=== PATIENT | male | born 1925 | race Caucasian/White ===

== ENCOUNTER 2017-07-12 20:15 | Inpatient (IN) | payer MEDICARE ==
[~2017-07-12] VITALS: Ht 188 cm; Wt 102.5 kg
[2017-07-12 20:31] LABS: BASO # 0.1 x10^3/uL (0.0-0.2); BASO % 1 % (0-3); EOS % 1 % (0-3); HEMATOCRIT 48.2 % (39.0-53.0); HEMOGLOBIN 16.4 g/dL (13.0-17.5); LYMPH # 1.2 x10^3/uL (1.0-4.8); LYMPH % 17 % (24-48); MEAN CORPUSCULAR HEMOGLOBIN 34 pg (25-35); MEAN CORPUSCULAR HGB CONC 34 g/dL (31-37); MEAN CORPUSCULAR VOLUME 101 fL (79-100); MONO % 8 % (0-9); NEUT % 73 % (31-73); PLATELET COUNT 243 x10^3/uL (140-400); RED BLOOD COUNT 4.78 x10^6/uL (4.30-5.70); RED CELL DISTRIBUTION WIDTH 13.6 % (11.5-14.5); WHITE BLOOD COUNT 6.8 x10^3/uL (4.0-11.0)
--- NOTE | 2017-07-12 20:35 | PHYS DOC ---
Adult General Chief Complaint Chief Complaint: WEAKNESS/GENERALIZED HPI HPI Patient is a 89 year old male presenting to the emergency department via EMS for evaluation of left arm weakness and pain that started approximately 1700. Family reported to EMS that he has been more weak and had more difficulty getting around over the past several days. G was done in route which showed J- point elevation with nonspecific intraventricular block and was called as a code STEMI however upon review of the transmitted EKGs it appears to be more of a J-point elevation and not a STEMI. On arrival patient is asking what all the fuss is about and says that he is not having any pain at this time and he is not diaphoretic or short of breath. Patient has tremors which is baseline per family. Patient does not see physicians and they say that he is quite stubborn. He is in no obvious distress with normal vital signs. Review of Systems Review of Systems Constitutional: Denies fever or chills [] Eyes: Denies change in visual acuity, redness, or eye pain [] HENT: Denies nasal congestion or sore throat [] Respiratory: Denies cough or shortness of breath [] Cardiovascular: No additional information not addressed in HPI [] GI: Denies abdominal pain, nausea, vomiting, bloody stools or diarrhea [] : Denies dysuria or hematuria [] Musculoskeletal: Denies back pain or joint pain [] Integument: Denies rash or skin lesions [] Neurologic: Denies headache. + focal weakness. No sensory changes [] Current Medications Current Medications Current Medications Medications (Trade) Dose Ordered Sig/Andrei Start Time Stop Time Status Last Admin Dose Admin Fentanyl Citrate (Fentanyl 2ml Vial) 50 mcg PRN Q2HR PRN 07/12/17 21:45 07/13/17 21:44 Ondansetron HCl (Zofran) 4 mg PRN Q8HRS PRN 07/12/17 21:45 07/13/17 21:44 Allergies Allergies Allergies Coded Allergies Type Severity Reaction Last Updated Verified No Known Drug Allergies 07/12/17 No Physical Exam Physical Exam Constitutional: Well developed, well nourished, no acute distress, non-toxic appearance. [] HENT: Normocephalic, atraumatic, bilateral external ears normal, oropharynx moist, no oral exudates, nose normal. [] Eyes: PERRLA, EOMI, conjunctiva normal, no discharge. [] Neck: Normal range of motion, no tenderness, supple, no stridor. [] Cardiovascular:Heart rate regular rhythm, no murmur [] Lungs & Thorax: Bilateral breath sounds clear to auscultation [] Abdomen: Bowel sounds normal, soft, no tenderness, no masses, no pulsatile masses. [] Skin: Warm, dry, no erythema, no rash. [] Back: No tenderness, no CVA tenderness. [] Extremities: No tenderness, no cyanosis, no clubbing, ROM intact, no edema. [] Neurologic: Alert and oriented X 3, normal motor function, normal sensory function, no focal deficits noted. baseline tremors noted. Current Patient Data Vital Signs Vital Signs Date Time Temp Pulse Resp B/P (MAP) Pulse Ox O2 Delivery O2 Flow Rate FiO2 07/12/17 22:07 76 20 148/72 (97) 95 07/12/17 20:19 98.3 Room Air 98.3 Lab Values Laboratory Tests Test 07/12/17 20:20 07/12/17 20:23 07/12/17 20:28 07/12/17 20:49 White Blood Count 6.8 x10^3/uL (4.0-11.0) Red Blood Count 4.78 x10^6/uL (4.30-5.70) Hemoglobin 16.4 g/dL (13.0-17.5) Hematocrit 48.2 % (39.0-53.0) Mean Corpuscular Volume 101 fL (79-100) H Mean Corpuscular Hemoglobin 34 pg (25-35) Mean Corpuscular Hemoglobin Concent 34 g/dL (31-37) Red Cell Distribution Width 13.6 % (11.5-14.5) Platelet Count 243 x10^3/uL (140-400) Neutrophils (%) (Auto) 73 % (31-73) Lymphocytes (%) (Auto) 17 % (24-48) L Monocytes (%) (Auto) 8 % (0-9) Eosinophils (%) (Auto) 1 % (0-3) Basophils (%) (Auto) 1 % (0-3) Neutrophils # (Auto) 5.0 x10^3uL (1.8-7.7) Lymphocytes # (Auto) 1.2 x10^3/uL (1.0-4.8) Monocytes # (Auto) 0.6 x10^3/uL (0.0-1.1) Eosinophils # (Auto) 0.1 x10^3/uL (0.0-0.7) Basophils # (Auto) 0.1 x10^3/uL (0.0-0.2) Prothrombin Time 13.6 SEC (11.7-14.0) Prothrombin Time INR 1.1 (0.8-1.1) PTT 30 SEC (24-38) POC Troponin I 0.06 ng/ml (<0.08) POC Hemoglobin 16.7 g/dL (14-18) POC Hematocrit 49 % (37-52) POC Sodium 140 mmol/L (135-145) POC Potassium 4.6 mmol/L (3.5-5.0) POC Chloride 98 mmol/L (98-110) POC Total CO2 29 mmol/L (23-32) Anion Gap 18 mmol/L (6-14) H 6 (6-14) POC Blood Urea Nitrogen 17 mg/dL (8-26) POC Creatinine 0.8 mg/dL (0.5-1.4) Glucose Level 151 mg/dL (70-99) H 160 mg/dL (70-99) H POC Ionized Calcium (Migdalia) 0.48 mmol/L (1.13-1.32) L Sodium Level 138 mmol/L (136-145) Potassium Level 4.4 mmol/L (3.5-5.1) Chloride Level 102 mmol/L (98-107) Carbon Dioxide Level 30 mmol/L (21-32) Blood Urea Nitrogen 14 mg/dL (8-26) Creatinine 1.0 mg/dL (0.7-1.3) Estimated GFR (Cockcroft-Gault) 70.4 BUN/Creatinine Ratio 14 (6-20) Calcium Level 9.1 mg/dL (8.5-10.1) Magnesium Level 2.1 mg/dL (1.8-2.4) Total Bilirubin 1.0 mg/dL (0.2-1.0) Aspartate Amino Transferase (AST) 20 U/L (15-37) Alanine Aminotransferase (ALT) 18 U/L (16-63) Alkaline Phosphatase 67 U/L (46-116) Troponin I Quantitative 0.051 ng/mL (0.000-0.055) XD-Xis-G-Type Natriuretic Peptide 2556 pg/mL (0-449) H Total Protein 7.6 g/dL (6.4-8.2) Albumin 3.7 g/dL (3.4-5.0) Albumin/Globulin Ratio 0.9 (1.0-1.7) L Lipase 144 U/L (73-393) Thyroid Stimulating Hormone (TSH) 1.941 uIU/mL (0.358-3.74) Test 07/12/17 21:51 Urine Collection Type Unknown Urine Color Yellow Urine Clarity Clear Urine pH 7.0 Urine Specific [place] 1.025 Urine Protein Negative mg/dL (NEG-TRACE) Urine Glucose (UA) Negative mg/dL (NEG) Urine Ketones (Stick) Trace mg/dL (NEG) Urine Blood Negative (NEG) Urine Nitrite Negative (NEG) Urine Bilirubin Negative (NEG) Urine Urobilinogen Dipstick 1.0 mg/dL (0.2 mg/dL) Urine Leukocyte Esterase Negative (NEG) Urine RBC Occ /HPF (0-2) Urine WBC 1-4 /HPF (0-4) Urine Squamous Epithelial Cells Few /LPF Urine Bacteria 0 /HPF (0-FEW) Urine Mucus Slight /LPF Laboratory Tests 07/12/17 20:20 Laboratory Tests 07/12/17 20:28 07/12/17 20:49 EKG EKG Sinus rhythm at 76 beats per minutes with leftward axis nonspecific intraventricular block, J-point elevation with no ST depression in reciprocal leads noted. Radiology/Procedures Radiology/Procedures Exam performed: CT scan of the head and cervical spine without contrast. Date of Service: 07/12/2017 Comparison: None available Clinical History: Left arm weakness and tremors with altered mental status Technique: Helical acquisitions are obtained from the foramen magnum to the vertex without intravenous administration of contrast. In addition helical acquisitions are obtained through the cervical spine. Sagittal and coronal reformatted images are obtained and reviewed. CT scan head findings: Prominence of cortical sulci and ventricular system is noted consistent with age-related atrophy. There are areas of low-attenuation in both periventricular and subcortical deep white matter suggesting small vessel ischemic changes. Normal cortés-white differentiation is maintained. There is no extra axial fluid collection, intraparenchymal hemorrhage or mass lesion. The visualized orbits, paranasal sinuses and the mastoid air cells are clear. The calvarium is intact. Impression: 1. No acute intracranial process detected. 2. Age-related atrophy and bilateral periventricular small vessel ischemic changes. End Impression. CT cervical spine findings: Normal sagittal alignment is preserved. The vertebral body heights are maintained. There is narrowing of C3/4 C5/6 and C6/7 intravertebral disc spaces with osteophytic spurring centered mainly around C5/6 level. Multilevel bilateral apophyseal joint hypertrophic changes are seen. There is no ferdinand or retrolisthesis. No prevertebral soft tissue swelling is identified. There are no fractures. No definite lymphadenopathy or masses are seen within the neck. The visualized thyroid and salivary glands appears preserved. Impression: 1. No acute abnormality seen in the CT scan cervical spine. 2. Spondylotic changes and multilevel disc degenerative changes are noted. PQRS Compliance Statement: One or more of the following individualized dose reduction techniques were utilized for this examination: 1. Automated exposure control 2. Adjustment of the mA and/or kV according to patient size 3. Use of iterative reconstruction technique Electronically signed by: Ann Medina MD (07/12/2017 8:50 PM) [facility] DICTATED and SIGNED BY: ANN MEDINA MD DATE: 07/12/172043 Impressions: Chest x-ray shows normal mediastinum borderline cardiomegaly no obvious free air pneumothorax that appears to have some interstitial edema Course & Med Decision Making Course & Med Decision Making Patient has an age stroke scale of 1 with mild arm drift on left side however his strength overall is intact. He is more than 3 hours out from onset of symptoms and is elderly and is not a good TPA candidate in my opinion. Dr. ulnd received EKG tracings and agreed with the assessment of not activating the catheter lab at this point. Patient appears to have chest x-ray and BNP consistent with congestive heart failure. He appears somewhat short of breath but nontoxic. Pulse ox is in the mid 90s. Given his age core morbidities and workup he will be admitted for further observation and treatment. Dragon Disclaimer Dragon Disclaimer This electronic medical record was generated, in whole or in part, using a voice recognition dictation system. Departure Departure Impression: Primary Impression: Left arm weakness Additional Impression: Elevated brain natriuretic peptide (BNP) level Disposition: ADMITTED INPATIENT Admitting Physician: Casi Banda Condition: STABLE Problem Qualifiers DHARMESH GARDNER DO Jul 12, 2017 20:35
[2017-07-12] MEDS ORDERED: ASPI-482 PO (20:37)
[2017-07-12 20:41] LABS: INR 1.1 (0.8-1.1); PROTHROMBIN TIME PATIENT 13.6 SEC (11.7-14.0)
--- NOTE | 2017-07-12 20:54 | RAD ---
Exam performed: CT scan of the head and cervical spine without contrast. Date of Service: 07/12/2017 Comparison: None available Clinical History: Left arm weakness and tremors with altered mental status Technique: Helical acquisitions are obtained from the foramen magnum to the vertex without intravenous administration of contrast. In addition helical acquisitions are obtained through the cervical spine. Sagittal and coronal reformatted images are obtained and reviewed. CT scan head findings: Prominence of cortical sulci and ventricular system is noted consistent with age-related atrophy. There are areas of low-attenuation in both periventricular and subcortical deep white matter suggesting small vessel ischemic changes. Normal cortés-white differentiation is maintained. There is no extra axial fluid collection, intraparenchymal hemorrhage or mass lesion. The visualized orbits, paranasal sinuses and the mastoid air cells are clear. The calvarium is intact. Impression: 1. No acute intracranial process detected. 2. Age-related atrophy and bilateral periventricular small vessel ischemic changes. End Impression. CT cervical spine findings: Normal sagittal alignment is preserved. The vertebral body heights are maintained. There is narrowing of C3/4 C5/6 and C6/7 intravertebral disc spaces with osteophytic spurring centered mainly around C5/6 level. Multilevel bilateral apophyseal joint hypertrophic changes are seen. There is no ferdinand or retrolisthesis. No prevertebral soft tissue swelling is identified. There are no fractures. No definite lymphadenopathy or masses are seen within the neck. The visualized thyroid and salivary glands appears preserved. Impression: 1. No acute abnormality seen in the CT scan cervical spine. 2. Spondylotic changes and multilevel disc degenerative changes are noted. PQRS Compliance Statement: One or more of the following individualized dose reduction techniques were utilized for this examination: 1. Automated exposure control 2. Adjustment of the mA and/or kV according to patient size 3. Use of iterative reconstruction technique Electronically signed by: Ann Mednia MD (07/12/2017 8:50 PM) [facility]
[2017-07-12 20:55] LABS: POTASSIUM ISTAT 4.6 mmol/L (3.5-5.0)
[2017-07-12 21:07] LABS: CALCIUM 9.1 mg/dL (8.5-10.1); GFR 70.4; POTASSIUM 4.4 mmol/L (3.5-5.1)
[2017-07-12 21:13] LABS: ALBUMIN 3.7 g/dL (3.4-5.0); ALBUMIN/GLOBULIN RATIO 0.9 (1.0-1.7); MAGNESIUM 2.1 mg/dL (1.8-2.4); TOTAL PROTEIN 7.6 g/dL (6.4-8.2)
[2017-07-12] MEDS ORDERED: ONDANSETRON PF 4 MG/2 ML VIAL. IV PRN (21:45)
[2017-07-12] MEDS ORDERED: fentaNYL PF VIAL 100 MCG/2 ML VIAL IV PRN (21:45)
[2017-07-12 22:00] LABS: BILIRUBIN,URINE NEGATIVE (NEG); GLUCOSE,URINE NEGATIVE (NEG); NITRITE,URINE NEGATIVE (NEG); PROTEIN,URINE NEGATIVE (NEG-TRACE)
[2017-07-12 22:08] LABS: BACTERIA,URINE 0 /HPF (0-FEW); RBC,URINE OCC /HPF (0-2); SQUAMOUS EPITHELIAL CELL,UR FEW /LPF
[2017-07-12 23:40] VITALS: BP 121/62
[2017-07-13] MEDS ORDERED: MULT1TAB52 PO (01:14)
[2017-07-13 03:25] VITALS: BP 116/72
[2017-07-13 04:36] LABS: BASO % 0 % (0-3); EOS % 1 % (0-3); HEMATOCRIT 47.1 % (39.0-53.0); HEMOGLOBIN 16.2 g/dL (13.0-17.5); LYMPH # 1.2 x10^3/uL (1.0-4.8); LYMPH % 13 % (24-48); MEAN CORPUSCULAR HEMOGLOBIN 34 pg (25-35); MEAN CORPUSCULAR HGB CONC 34 g/dL (31-37); MEAN CORPUSCULAR VOLUME 100 fL (79-100); MONO % 8 % (0-9); NEUT % 77 % (31-73); PLATELET COUNT 164 x10^3/uL (140-400); RED BLOOD COUNT 4.71 x10^6/uL (4.30-5.70); RED CELL DISTRIBUTION WIDTH 13.5 % (11.5-14.5); WHITE BLOOD COUNT 9.1 x10^3/uL (4.0-11.0)
[2017-07-13 04:57] LABS: CALCIUM 8.8 mg/dL (8.5-10.1); CREATININE 0.9 mg/dL (0.7-1.3); GFR 79.5; POTASSIUM 4.2 mmol/L (3.5-5.1)
--- NOTE | 2017-07-13 06:23 | EKG ---
[facility] [address] [place] [address] Test Date: 2017-07-12 Test Time: 20:14:06 Pat Name: GARY LU Department: Room: [facility] Gender: M Technical Documentation Specialist: : [id number] Requested By: DHARMESH GARDNER Order Number: [id number] Reading MD: Darryl Hastings Measurements Intervals [place] Rate: 76 P: -90 AK: 318 QRS: -5 QRSD: 146 T: 154 QT: 410 QTc: 461 Interpretive Statements SINUS RHYTHM PROLONGED AK INTERVAL LEFTWARD AXIS NON SPECIFIC INTRAVENTRICULAR BLOCK QRS(T) CONTOUR ABNORMALITY CONSISTENT WITH ANTEROSEPTAL INFARCT POSSIBLY RECENT Electronically Signed On 08-03-2017 16:15:14 CDT by Darryl Hastings
[2017-07-13 07:00] VITALS: BP 127/68
--- NOTE | 2017-07-13 08:19 | RAD ---
Chest x-ray Indication: Chest pain. Technique: Portable AP chest x-ray Comparison: None Findings: Patient is slightly rotated to the left. Heart is normal in size. Bibasilar reticulonodular opacities are noted. No focal consolidation. No pneumothorax or pleural effusion. Bilateral AC joint osteoarthritis. Visualized bony thorax within normal limits. Impression: Bibasilar reticular opacities may represent basilar scarring. No acute cardiopulmonary process.
--- NOTE | 2017-07-13 09:44 | PDOC2 ---
CARDIAC CONSULT DATE OF CONSULT Date of Consult DATE: 07/13/17 TIME: 09:39 REASON FOR CONSULT Reason for Consult: Elevated BNP EKG changes REFERRING PHYSICIAN Referring Physician: Dr. Renee SOURCE Source: Chart review, Patient HISTORY OF PRESENT ILLNESS HISTORY OF PRESENT ILLNESS This is an 89 yo male, with no significant medical pervious medical history although he does not routinely see primary care provider, who presented with complaints of left arm weakness and pain. Is somewhat of a difficult historian. Lives at home with daughter with disability. They apparently help take care of his daughter. Is very "worried" about not being able to go back home and what will happen with his daughter. Patient reports abrupt onset of weakness and being "off balance." Was outside working in the yard. Came in and sat down to reset. Got up to go to the bathroom and had difficult. Reports things were "off " and couldn't coordinated his movements. [place] as is something was very wrong. Has had some left arm pain, but reports that was secondary to a fall last week. Denies any chest pain, palpitations, dizziness, diaphoresis, or nausea/ vomiting. Reports recent cough productive of thick white/yellow-tinged sputum. Feels that he his drinking too many milk products that he is unable to break down. Noted with tremors, which daughter reports as baseline, but denies any history of Parkinson's. Takes a MVI and baby ASA daily. PAST MEDICAL HISTORY Cardiovascular: No pertinent hx Pulmonary: No pertinent hx CENTRAL NERVOUS SYSTEM: Other (tremors) GI: No pertinent hx Heme/Onc: No pertinent hx Hepatobiliary: No pertinent hx Psych: No pertinent hx Rheumatologic: No pertinent hx Infectious disease: No pertinent hx ENT: No pertinent hx Renal/: No pertinent hx Endocrine: No pertinent hx Dermatology: No pertinent hx PAST SURGICAL HISTORY Past Surgical History: No pertinent history FAMILY HISTORY Family History: Heart Disease SOCIAL HISTORY Smoke: No ALCOHOL: none Drugs: None Lives: with Family (disabled daughter) ALLERGIES ALLERGIES: Coded Allergies: No Known Drug Allergies (Unverified , 07/12/17) ROS Review of System 14 point ROS conducted with pertinent positives noted above in HPI. PHYSICAL EXAM General: Alert, Oriented X3, Cooperative, No acute distress HEENT: Atraumatic, Mucous membr. moist/pink Lungs: Other (coarse throughout ) Heart: Regular rate, Normal S1, Normal S2, Other (frequent PVC's, distant heart tones ) Abdomen: Soft, No tenderness Extremities: Normal pulses, Other (2+ RLE and 1+ LLE edema ) Neuro: Normal speech, Sensation intact Psych/Mental Status: Other (anxious ) MUSCULOSKELETAL: Osteoarthritic changes both hands VITALS VITALS Vital Signs Date Time Temp Pulse Resp B/P (MAP) Pulse Ox O2 Delivery O2 Flow Rate FiO2 07/13/17 08:00 Room Air 07/13/17 07:00 97.9 68 20 127/68 (87) 94 97.9 LABS Lab: Laboratory Tests Test 07/12/17 20:20 07/12/17 20:23 07/12/17 20:28 07/12/17 20:49 White Blood Count 6.8 x10^3/uL (4.0-11.0) Red Blood Count 4.78 x10^6/uL (4.30-5.70) Hemoglobin 16.4 g/dL (13.0-17.5) Hematocrit 48.2 % (39.0-53.0) Mean Corpuscular Volume 101 fL (79-100) Mean Corpuscular Hemoglobin 34 pg (25-35) Mean Corpuscular Hemoglobin Concent 34 g/dL (31-37) Red Cell Distribution Width 13.6 % (11.5-14.5) Platelet Count 243 x10^3/uL (140-400) Neutrophils (%) (Auto) 73 % (31-73) Lymphocytes (%) (Auto) 17 % (24-48) Monocytes (%) (Auto) 8 % (0-9) Eosinophils (%) (Auto) 1 % (0-3) Basophils (%) (Auto) 1 % (0-3) Neutrophils # (Auto) 5.0 x10^3uL (1.8-7.7) Lymphocytes # (Auto) 1.2 x10^3/uL (1.0-4.8) Monocytes # (Auto) 0.6 x10^3/uL (0.0-1.1) Eosinophils # (Auto) 0.1 x10^3/uL (0.0-0.7) Basophils # (Auto) 0.1 x10^3/uL (0.0-0.2) Prothrombin Time 13.6 SEC (11.7-14.0) Prothromb Time International Ratio 1.1 (0.8-1.1) Activated Partial Thromboplast Time 30 SEC (24-38) Bedside Troponin I 0.06 ng/ml (<0.08) Bedside Hemoglobin 16.7 g/dL (14-18) Bedside Hematocrit 49 % (37-52) Bedside Sodium 140 mmol/L (135-145) Bedside Potassium 4.6 mmol/L (3.5-5.0) Bedside Chloride 98 mmol/L (98-110) Bedside Total CO2 29 mmol/L (23-32) Anion Gap 18 mmol/L (6-14) 6 (6-14) Bedside Blood Urea Nitrogen 17 mg/dL (8-26) Bedside Creatinine 0.8 mg/dL (0.5-1.4) Glucose Level 151 mg/dL (70-99) 160 mg/dL (70-99) Bedside Ionized Calcium (Migdalia) 0.48 mmol/L (1.13-1.32) Sodium Level 138 mmol/L (136-145) Potassium Level 4.4 mmol/L (3.5-5.1) Chloride Level 102 mmol/L (98-107) Carbon Dioxide Level 30 mmol/L (21-32) Blood Urea Nitrogen 14 mg/dL (8-26) Creatinine 1.0 mg/dL (0.7-1.3) Estimated GFR (Cockcroft-Gault) 70.4 BUN/Creatinine Ratio 14 (6-20) Calcium Level 9.1 mg/dL (8.5-10.1) Magnesium Level 2.1 mg/dL (1.8-2.4) Total Bilirubin 1.0 mg/dL (0.2-1.0) Aspartate Amino Transf (AST/SGOT) 20 U/L (15-37) Alanine Aminotransferase (ALT/SGPT) 18 U/L (16-63) Alkaline Phosphatase 67 U/L (46-116) Troponin I Quantitative 0.051 ng/mL (0.000-0.055) FN-Mwq-Q-Type Natriuretic Peptide 2556 pg/mL (0-449) Total Protein 7.6 g/dL (6.4-8.2) Albumin 3.7 g/dL (3.4-5.0) Albumin/Globulin Ratio 0.9 (1.0-1.7) Lipase 144 U/L (73-393) Thyroid Stimulating Hormone (TSH) 1.941 uIU/mL (0.358-3.74) Test 07/12/17 21:51 07/13/17 03:45 Urine Collection Type Unknown Urine Color Yellow Urine Clarity Clear Urine pH 7.0 Urine Specific [place] 1.025 Urine Protein Negative mg/dL (NEG-TRACE) Urine Glucose (UA) Negative mg/dL (NEG) Urine Ketones (Stick) Trace mg/dL (NEG) Urine Blood Negative (NEG) Urine Nitrite Negative (NEG) Urine Bilirubin Negative (NEG) Urine Urobilinogen Dipstick 1.0 mg/dL (0.2 mg/dL) Urine Leukocyte Esterase Negative (NEG) Urine RBC Occ /HPF (0-2) Urine WBC 1-4 /HPF (0-4) Urine Squamous Epithelial Cells Few /LPF Urine Bacteria 0 /HPF (0-FEW) Urine Mucus Slight /LPF White Blood Count 9.1 x10^3/uL (4.0-11.0) Red Blood Count 4.71 x10^6/uL (4.30-5.70) Hemoglobin 16.2 g/dL (13.0-17.5) Hematocrit 47.1 % (39.0-53.0) Mean Corpuscular Volume 100 fL (79-100) Mean Corpuscular Hemoglobin 34 pg (25-35) Mean Corpuscular Hemoglobin Concent 34 g/dL (31-37) Red Cell Distribution Width 13.5 % (11.5-14.5) Platelet Count 164 x10^3/uL (140-400) Neutrophils (%) (Auto) 77 % (31-73) Lymphocytes (%) (Auto) 13 % (24-48) Monocytes (%) (Auto) 8 % (0-9) Eosinophils (%) (Auto) 1 % (0-3) Basophils (%) (Auto) 0 % (0-3) Neutrophils # (Auto) 7.0 x10^3uL (1.8-7.7) Lymphocytes # (Auto) 1.2 x10^3/uL (1.0-4.8) Monocytes # (Auto) 0.8 x10^3/uL (0.0-1.1) Eosinophils # (Auto) 0.1 x10^3/uL (0.0-0.7) Basophils # (Auto) 0.0 x10^3/uL (0.0-0.2) Sodium Level 140 mmol/L (136-145) Potassium Level 4.2 mmol/L (3.5-5.1) Chloride Level 102 mmol/L (98-107) Carbon Dioxide Level 32 mmol/L (21-32) Anion Gap 6 (6-14) Blood Urea Nitrogen 13 mg/dL (8-26) Creatinine 0.9 mg/dL (0.7-1.3) Estimated GFR (Cockcroft-Gault) 79.5 Glucose Level 126 mg/dL (70-99) Calcium Level 8.8 mg/dL (8.5-10.1) Magnesium Level 2.2 mg/dL (1.8-2.4) Troponin I Quantitative 0.071 ng/mL (0.000-0.055) Thyroid Stimulating Hormone (TSH) 1.962 uIU/mL (0.358-3.74) ASSESSMENT/PLAN ASSESSMENT/PLAN 1. Mild acute heart failure; NT Pro BNP mildly elevated. CXR without significant vascular congestion 2. Mild troponin elevation; peak 0.071. EKG with LBBB; no previous for comparison. CP free. 3. Weakness/debility 4. Tremors 5. Hyperglycemia; as per PCP Recommendations Continue mild diuresis; covert to oral. Replace K Check lipids, TSH, Mg level Obtain echo to assess LV function Supportive care. Given mild troponin elevation, risk factors, and abnormal EKG, could consider further ischemic evaluation. Keep NPO p MN. Will d/w primary complaint investigator. Further recommendations pending diagnostics. Problems: ISAIAH CH APRN Jul 13, 2017 09:44
[2017-07-13 10:28] LABS: CHOLESTEROL/HDL RATIO 3.4
--- NOTE | 2017-07-13 10:48 | PDOC ---
PROGRESS NOTES Chief Complaint Chief Complaint elevated BNP left arm weakness History of Present Illness History of Present Illness Patient awake resting comfortably with noticeable tremor. Food present but patient said he was not hungry. Vitals Vitals Vital Signs Date Time Temp Pulse Resp B/P (MAP) Pulse Ox O2 Delivery O2 Flow Rate FiO2 07/13/17 08:00 Room Air 07/13/17 07:00 97.9 68 20 127/68 (87) 94 97.9 Physical Exam Physical Exam Patient sitting in bed. Conversant with healthcare team and answered questions with appropriate, complete responses. 2+ edema present on both legs. SCDs and compression stockings in place. General: Alert, Oriented X3, Cooperative, No acute distress Heart: Regular rate, Normal S1, Normal S2 Lungs: Clear Abdomen: Normal bowel sounds Extremities: Other (2+ edema present b/l) Labs LABS Laboratory Tests Test 07/12/17 20:20 07/12/17 20:23 07/12/17 20:28 07/12/17 20:49 White Blood Count 6.8 x10^3/uL (4.0-11.0) Red Blood Count 4.78 x10^6/uL (4.30-5.70) Hemoglobin 16.4 g/dL (13.0-17.5) Hematocrit 48.2 % (39.0-53.0) Mean Corpuscular Volume 101 fL (79-100) Mean Corpuscular Hemoglobin 34 pg (25-35) Mean Corpuscular Hemoglobin Concent 34 g/dL (31-37) Red Cell Distribution Width 13.6 % (11.5-14.5) Platelet Count 243 x10^3/uL (140-400) Neutrophils (%) (Auto) 73 % (31-73) Lymphocytes (%) (Auto) 17 % (24-48) Monocytes (%) (Auto) 8 % (0-9) Eosinophils (%) (Auto) 1 % (0-3) Basophils (%) (Auto) 1 % (0-3) Neutrophils # (Auto) 5.0 x10^3uL (1.8-7.7) Lymphocytes # (Auto) 1.2 x10^3/uL (1.0-4.8) Monocytes # (Auto) 0.6 x10^3/uL (0.0-1.1) Eosinophils # (Auto) 0.1 x10^3/uL (0.0-0.7) Basophils # (Auto) 0.1 x10^3/uL (0.0-0.2) Prothrombin Time 13.6 SEC (11.7-14.0) Prothromb Time International Ratio 1.1 (0.8-1.1) Activated Partial Thromboplast Time 30 SEC (24-38) Bedside Troponin I 0.06 ng/ml (<0.08) Bedside Hemoglobin 16.7 g/dL (14-18) Bedside Hematocrit 49 % (37-52) Bedside Sodium 140 mmol/L (135-145) Bedside Potassium 4.6 mmol/L (3.5-5.0) Bedside Chloride 98 mmol/L (98-110) Bedside Total CO2 29 mmol/L (23-32) Anion Gap 18 mmol/L (6-14) 6 (6-14) Bedside Blood Urea Nitrogen 17 mg/dL (8-26) Bedside Creatinine 0.8 mg/dL (0.5-1.4) Glucose Level 151 mg/dL (70-99) 160 mg/dL (70-99) Bedside Ionized Calcium (Migdalia) 0.48 mmol/L (1.13-1.32) Sodium Level 138 mmol/L (136-145) Potassium Level 4.4 mmol/L (3.5-5.1) Chloride Level 102 mmol/L (98-107) Carbon Dioxide Level 30 mmol/L (21-32) Blood Urea Nitrogen 14 mg/dL (8-26) Creatinine 1.0 mg/dL (0.7-1.3) Estimated GFR (Cockcroft-Gault) 70.4 BUN/Creatinine Ratio 14 (6-20) Calcium Level 9.1 mg/dL (8.5-10.1) Magnesium Level 2.1 mg/dL (1.8-2.4) Total Bilirubin 1.0 mg/dL (0.2-1.0) Aspartate Amino Transf (AST/SGOT) 20 U/L (15-37) Alanine Aminotransferase (ALT/SGPT) 18 U/L (16-63) Alkaline Phosphatase 67 U/L (46-116) Troponin I Quantitative 0.051 ng/mL (0.000-0.055) GT-Lrf-R-Type Natriuretic Peptide 2556 pg/mL (0-449) Total Protein 7.6 g/dL (6.4-8.2) Albumin 3.7 g/dL (3.4-5.0) Albumin/Globulin Ratio 0.9 (1.0-1.7) Lipase 144 U/L (73-393) Thyroid Stimulating Hormone (TSH) 1.941 uIU/mL (0.358-3.74) Test 07/12/17 21:51 07/13/17 03:45 07/13/17 09:20 Urine Collection Type Unknown Urine Color Yellow Urine Clarity Clear Urine pH 7.0 Urine Specific Marcella 1.025 Urine Protein Negative mg/dL (NEG-TRACE) Urine Glucose (UA) Negative mg/dL (NEG) Urine Ketones (Stick) Trace mg/dL (NEG) Urine Blood Negative (NEG) Urine Nitrite Negative (NEG) Urine Bilirubin Negative (NEG) Urine Urobilinogen Dipstick 1.0 mg/dL (0.2 mg/dL) Urine Leukocyte Esterase Negative (NEG) Urine RBC Occ /HPF (0-2) Urine WBC 1-4 /HPF (0-4) Urine Squamous Epithelial Cells Few /LPF Urine Bacteria 0 /HPF (0-FEW) Urine Mucus Slight /LPF White Blood Count 9.1 x10^3/uL (4.0-11.0) Red Blood Count 4.71 x10^6/uL (4.30-5.70) Hemoglobin 16.2 g/dL (13.0-17.5) Hematocrit 47.1 % (39.0-53.0) Mean Corpuscular Volume 100 fL (79-100) Mean Corpuscular Hemoglobin 34 pg (25-35) Mean Corpuscular Hemoglobin Concent 34 g/dL (31-37) Red Cell Distribution Width 13.5 % (11.5-14.5) Platelet Count 164 x10^3/uL (140-400) Neutrophils (%) (Auto) 77 % (31-73) Lymphocytes (%) (Auto) 13 % (24-48) Monocytes (%) (Auto) 8 % (0-9) Eosinophils (%) (Auto) 1 % (0-3) Basophils (%) (Auto) 0 % (0-3) Neutrophils # (Auto) 7.0 x10^3uL (1.8-7.7) Lymphocytes # (Auto) 1.2 x10^3/uL (1.0-4.8) Monocytes # (Auto) 0.8 x10^3/uL (0.0-1.1) Eosinophils # (Auto) 0.1 x10^3/uL (0.0-0.7) Basophils # (Auto) 0.0 x10^3/uL (0.0-0.2) Sodium Level 140 mmol/L (136-145) Potassium Level 4.2 mmol/L (3.5-5.1) Chloride Level 102 mmol/L (98-107) Carbon Dioxide Level 32 mmol/L (21-32) Anion Gap 6 (6-14) Blood Urea Nitrogen 13 mg/dL (8-26) Creatinine 0.9 mg/dL (0.7-1.3) Estimated GFR (Cockcroft-Gault) 79.5 Glucose Level 126 mg/dL (70-99) Calcium Level 8.8 mg/dL (8.5-10.1) Magnesium Level 2.2 mg/dL (1.8-2.4) Troponin I Quantitative 0.071 ng/mL (0.000-0.055) 0.069 ng/mL (0.000-0.055) Triglycerides Level 52 mg/dL (0-150) Cholesterol Level 217 mg/dL (0-200) LDL Cholesterol, Calculated 144 mg/dL (0-100) VLDL Cholesterol, Calculated 10 mg/dL (0-40) Non-HDL Cholesterol Calculated 154 mg/dL (0-129) HDL Cholesterol 63 mg/dL (40-60) Cholesterol/HDL Ratio 3.4 Thyroid Stimulating Hormone (TSH) 1.962 uIU/mL (0.358-3.74) Review of Systems Review of Systems Patient admits to being tired. Patient denies appetite. Assessment and Plan Assessmemt and Plan Problems Medical Problems: (1) Elevated brain natriuretic peptide (BNP) level Status: Acute (2) Left arm weakness Status: Acute Assessment: AMS UTI altered mental status Plan: 1. Ordered CBC and BMP; will follow 2. Order BNP and follow 3. Lasix 40 IV q day 4. Consult PT/OT 5. Continue SCDs and compression stockings. 6. Continue PO diet as tolerated. 7. Continue following I/O Problems: Comment Review of Relevant I have reviewed the following items kathrin (where applicable) has been applied. Labs Laboratory Tests Test 07/12/17 20:20 07/12/17 20:23 07/12/17 20:28 07/12/17 20:49 White Blood Count 6.8 x10^3/uL (4.0-11.0) Red Blood Count 4.78 x10^6/uL (4.30-5.70) Hemoglobin 16.4 g/dL (13.0-17.5) Hematocrit 48.2 % (39.0-53.0) Mean Corpuscular Volume 101 fL (79-100) Mean Corpuscular Hemoglobin 34 pg (25-35) Mean Corpuscular Hemoglobin Concent 34 g/dL (31-37) Red Cell Distribution Width 13.6 % (11.5-14.5) Platelet Count 243 x10^3/uL (140-400) Neutrophils (%) (Auto) 73 % (31-73) Lymphocytes (%) (Auto) 17 % (24-48) Monocytes (%) (Auto) 8 % (0-9) Eosinophils (%) (Auto) 1 % (0-3) Basophils (%) (Auto) 1 % (0-3) Neutrophils # (Auto) 5.0 x10^3uL (1.8-7.7) Lymphocytes # (Auto) 1.2 x10^3/uL (1.0-4.8) Monocytes # (Auto) 0.6 x10^3/uL (0.0-1.1) Eosinophils # (Auto) 0.1 x10^3/uL (0.0-0.7) Basophils # (Auto) 0.1 x10^3/uL (0.0-0.2) Prothrombin Time 13.6 SEC (11.7-14.0) Prothromb Time International Ratio 1.1 (0.8-1.1) Activated Partial Thromboplast Time 30 SEC (24-38) Bedside Troponin I 0.06 ng/ml (<0.08) Bedside Hemoglobin 16.7 g/dL (14-18) Bedside Hematocrit 49 % (37-52) Bedside Sodium 140 mmol/L (135-145) Bedside Potassium 4.6 mmol/L (3.5-5.0) Bedside Chloride 98 mmol/L (98-110) Bedside Total CO2 29 mmol/L (23-32) Anion Gap 18 mmol/L (6-14) 6 (6-14) Bedside Blood Urea Nitrogen 17 mg/dL (8-26) Bedside Creatinine 0.8 mg/dL (0.5-1.4) Glucose Level 151 mg/dL (70-99) 160 mg/dL (70-99) Bedside Ionized Calcium (Migdalia) 0.48 mmol/L (1.13-1.32) Sodium Level 138 mmol/L (136-145) Potassium Level 4.4 mmol/L (3.5-5.1) Chloride Level 102 mmol/L (98-107) Carbon Dioxide Level 30 mmol/L (21-32) Blood Urea Nitrogen 14 mg/dL (8-26) Creatinine 1.0 mg/dL (0.7-1.3) Estimated GFR (Cockcroft-Gault) 70.4 BUN/Creatinine Ratio 14 (6-20) Calcium Level 9.1 mg/dL (8.5-10.1) Magnesium Level 2.1 mg/dL (1.8-2.4) Total Bilirubin 1.0 mg/dL (0.2-1.0) Aspartate Amino Transf (AST/SGOT) 20 U/L (15-37) Alanine Aminotransferase (ALT/SGPT) 18 U/L (16-63) Alkaline Phosphatase 67 U/L (46-116) Troponin I Quantitative 0.051 ng/mL (0.000-0.055) BD-Bff-I-Type Natriuretic Peptide 2556 pg/mL (0-449) Total Protein 7.6 g/dL (6.4-8.2) Albumin 3.7 g/dL (3.4-5.0) Albumin/Globulin Ratio 0.9 (1.0-1.7) Lipase 144 U/L (73-393) Thyroid Stimulating Hormone (TSH) 1.941 uIU/mL (0.358-3.74) Test 07/12/17 21:51 07/13/17 03:45 07/13/17 09:20 Urine Collection Type Unknown Urine Color Yellow Urine Clarity Clear Urine pH 7.0 Urine Specific Marcella 1.025 Urine Protein Negative mg/dL (NEG-TRACE) Urine Glucose (UA) Negative mg/dL (NEG) Urine Ketones (Stick) Trace mg/dL (NEG) Urine Blood Negative (NEG) Urine Nitrite Negative (NEG) Urine Bilirubin Negative (NEG) Urine Urobilinogen Dipstick 1.0 mg/dL (0.2 mg/dL) Urine Leukocyte Esterase Negative (NEG) Urine RBC Occ /HPF (0-2) Urine WBC 1-4 /HPF (0-4) Urine Squamous Epithelial Cells Few /LPF Urine Bacteria 0 /HPF (0-FEW) Urine Mucus Slight /LPF White Blood Count 9.1 x10^3/uL (4.0-11.0) Red Blood Count 4.71 x10^6/uL (4.30-5.70) Hemoglobin 16.2 g/dL (13.0-17.5) Hematocrit 47.1 % (39.0-53.0) Mean Corpuscular Volume 100 fL (79-100) Mean Corpuscular Hemoglobin 34 pg (25-35) Mean Corpuscular Hemoglobin Concent 34 g/dL (31-37) Red Cell Distribution Width 13.5 % (11.5-14.5) Platelet Count 164 x10^3/uL (140-400) Neutrophils (%) (Auto) 77 % (31-73) Lymphocytes (%) (Auto) 13 % (24-48) Monocytes (%) (Auto) 8 % (0-9) Eosinophils (%) (Auto) 1 % (0-3) Basophils (%) (Auto) 0 % (0-3) Neutrophils # (Auto) 7.0 x10^3uL (1.8-7.7) Lymphocytes # (Auto) 1.2 x10^3/uL (1.0-4.8) Monocytes # (Auto) 0.8 x10^3/uL (0.0-1.1) Eosinophils # (Auto) 0.1 x10^3/uL (0.0-0.7) Basophils # (Auto) 0.0 x10^3/uL (0.0-0.2) Sodium Level 140 mmol/L (136-145) Potassium Level 4.2 mmol/L (3.5-5.1) Chloride Level 102 mmol/L (98-107) Carbon Dioxide Level 32 mmol/L (21-32) Anion Gap 6 (6-14) Blood Urea Nitrogen 13 mg/dL (8-26) Creatinine 0.9 mg/dL (0.7-1.3) Estimated GFR (Cockcroft-Gault) 79.5 Glucose Level 126 mg/dL (70-99) Calcium Level 8.8 mg/dL (8.5-10.1) Magnesium Level 2.2 mg/dL (1.8-2.4) Troponin I Quantitative 0.071 ng/mL (0.000-0.055) 0.069 ng/mL (0.000-0.055) Triglycerides Level 52 mg/dL (0-150) Cholesterol Level 217 mg/dL (0-200) LDL Cholesterol, Calculated 144 mg/dL (0-100) VLDL Cholesterol, Calculated 10 mg/dL (0-40) Non-HDL Cholesterol Calculated 154 mg/dL (0-129) HDL Cholesterol 63 mg/dL (40-60) Cholesterol/HDL Ratio 3.4 Thyroid Stimulating Hormone (TSH) 1.962 uIU/mL (0.358-3.74) Laboratory Tests Test 07/12/17 20:20 07/12/17 20:23 07/12/17 20:28 07/12/17 20:49 White Blood Count 6.8 x10^3/uL (4.0-11.0) Red Blood Count 4.78 x10^6/uL (4.30-5.70) Hemoglobin 16.4 g/dL (13.0-17.5) Hematocrit 48.2 % (39.0-53.0) Mean Corpuscular Volume 101 fL (79-100) Mean Corpuscular Hemoglobin 34 pg (25-35) Mean Corpuscular Hemoglobin Concent 34 g/dL (31-37) Red Cell Distribution Width 13.6 % (11.5-14.5) Platelet Count 243 x10^3/uL (140-400) Neutrophils (%) (Auto) 73 % (31-73) Lymphocytes (%) (Auto) 17 % (24-48) Monocytes (%) (Auto) 8 % (0-9) Eosinophils (%) (Auto) 1 % (0-3) Basophils (%) (Auto) 1 % (0-3) Neutrophils # (Auto) 5.0 x10^3uL (1.8-7.7) Lymphocytes # (Auto) 1.2 x10^3/uL (1.0-4.8) Monocytes # (Auto) 0.6 x10^3/uL (0.0-1.1) Eosinophils # (Auto) 0.1 x10^3/uL (0.0-0.7) Basophils # (Auto) 0.1 x10^3/uL (0.0-0.2) Prothrombin Time 13.6 SEC (11.7-14.0) Prothromb Time International Ratio 1.1 (0.8-1.1) Activated Partial Thromboplast Time 30 SEC (24-38) Bedside Troponin I 0.06 ng/ml (<0.08) Bedside Hemoglobin 16.7 g/dL (14-18) Bedside Hematocrit 49 % (37-52) Bedside Sodium 140 mmol/L (135-145) Bedside Potassium 4.6 mmol/L (3.5-5.0) Bedside Chloride 98 mmol/L (98-110) Bedside Total CO2 29 mmol/L (23-32) Anion Gap 18 mmol/L (6-14) 6 (6-14) Bedside Blood Urea Nitrogen 17 mg/dL (8-26) Bedside Creatinine 0.8 mg/dL (0.5-1.4) Glucose Level 151 mg/dL (70-99) 160 mg/dL (70-99) Bedside Ionized Calcium (Migdalia) 0.48 mmol/L (1.13-1.32) Sodium Level 138 mmol/L (136-145) Potassium Level 4.4 mmol/L (3.5-5.1) Chloride Level 102 mmol/L (98-107) Carbon Dioxide Level 30 mmol/L (21-32) Blood Urea Nitrogen 14 mg/dL (8-26) Creatinine 1.0 mg/dL (0.7-1.3) Estimated GFR (Cockcroft-Gault) 70.4 BUN/Creatinine Ratio 14 (6-20) Calcium Level 9.1 mg/dL (8.5-10.1) Magnesium Level 2.1 mg/dL (1.8-2.4) Total Bilirubin 1.0 mg/dL (0.2-1.0) Aspartate Amino Transf (AST/SGOT) 20 U/L (15-37) Alanine Aminotransferase (ALT/SGPT) 18 U/L (16-63) Alkaline Phosphatase 67 U/L (46-116) Troponin I Quantitative 0.051 ng/mL (0.000-0.055) TA-Hjl-F-Type Natriuretic Peptide 2556 pg/mL (0-449) Total Protein 7.6 g/dL (6.4-8.2) Albumin 3.7 g/dL (3.4-5.0) Albumin/Globulin Ratio 0.9 (1.0-1.7) Lipase 144 U/L (73-393) Thyroid Stimulating Hormone (TSH) 1.941 uIU/mL (0.358-3.74) Test 07/12/17 21:51 07/13/17 03:45 07/13/17 09:20 Urine Collection Type Unknown Urine Color Yellow Urine Clarity Clear Urine pH 7.0 Urine Specific Marcella 1.025 Urine Protein Negative mg/dL (NEG-TRACE) Urine Glucose (UA) Negative mg/dL (NEG) Urine Ketones (Stick) Trace mg/dL (NEG) Urine Blood Negative (NEG) Urine Nitrite Negative (NEG) Urine Bilirubin Negative (NEG) Urine Urobilinogen Dipstick 1.0 mg/dL (0.2 mg/dL) Urine Leukocyte Esterase Negative (NEG) Urine RBC Occ /HPF (0-2) Urine WBC 1-4 /HPF (0-4) Urine Squamous Epithelial Cells Few /LPF Urine Bacteria 0 /HPF (0-FEW) Urine Mucus Slight /LPF White Blood Count 9.1 x10^3/uL (4.0-11.0) Red Blood Count 4.71 x10^6/uL (4.30-5.70) Hemoglobin 16.2 g/dL (13.0-17.5) Hematocrit 47.1 % (39.0-53.0) Mean Corpuscular Volume 100 fL (79-100) Mean Corpuscular Hemoglobin 34 pg (25-35) Mean Corpuscular Hemoglobin Concent 34 g/dL (31-37) Red Cell Distribution Width 13.5 % (11.5-14.5) Platelet Count 164 x10^3/uL (140-400) Neutrophils (%) (Auto) 77 % (31-73) Lymphocytes (%) (Auto) 13 % (24-48) Monocytes (%) (Auto) 8 % (0-9) Eosinophils (%) (Auto) 1 % (0-3) Basophils (%) (Auto) 0 % (0-3) Neutrophils # (Auto) 7.0 x10^3uL (1.8-7.7) Lymphocytes # (Auto) 1.2 x10^3/uL (1.0-4.8) Monocytes # (Auto) 0.8 x10^3/uL (0.0-1.1) Eosinophils # (Auto) 0.1 x10^3/uL (0.0-0.7) Basophils # (Auto) 0.0 x10^3/uL (0.0-0.2) Sodium Level 140 mmol/L (136-145) Potassium Level 4.2 mmol/L (3.5-5.1) Chloride Level 102 mmol/L (98-107) Carbon Dioxide Level 32 mmol/L (21-32) Anion Gap 6 (6-14) Blood Urea Nitrogen 13 mg/dL (8-26) Creatinine 0.9 mg/dL (0.7-1.3) Estimated GFR (Cockcroft-Gault) 79.5 Glucose Level 126 mg/dL (70-99) Calcium Level 8.8 mg/dL (8.5-10.1) Magnesium Level 2.2 mg/dL (1.8-2.4) Troponin I Quantitative 0.071 ng/mL (0.000-0.055) 0.069 ng/mL (0.000-0.055) Triglycerides Level 52 mg/dL (0-150) Cholesterol Level 217 mg/dL (0-200) LDL Cholesterol, Calculated 144 mg/dL (0-100) VLDL Cholesterol, Calculated 10 mg/dL (0-40) Non-HDL Cholesterol Calculated 154 mg/dL (0-129) HDL Cholesterol 63 mg/dL (40-60) Cholesterol/HDL Ratio 3.4 Thyroid Stimulating Hormone (TSH) 1.962 uIU/mL (0.358-3.74) Medications Current Medications Ondansetron HCl (Zofran) 4 mg PRN Q8HRS PRN IV NAUSEA/VOMITING; Start 07/12/17 at 21:45; Stop 07/13/17 at 21:44 Fentanyl Citrate (Fentanyl 2ml Vial) 50 mcg PRN Q2HR PRN IV PAIN; Start at 21:45; Stop 07/13/17 at 21:44 Active Scripts Active Reported Multivitamins (Multivitamin) 1 Each Tablet 1 Each PO DAILY Aspir 81 (Aspirin) 81 Mg Tablet. 1 Tab PO DAILY Vitals/I & O Vital Sign - Last 24 Hours 07/12/17 07/12/17 07/12/17 07/12/17 20:17 20:19 20:37 20:52 Temp 98.3 98.3 Pulse 92 77 80 96 Resp 18 18 20 18 B/P (MAP) 125/73 (90) 125/73 (90) 138/67 (90) 131/75 (93) Pulse Ox 97 97 95 97 O2 Delivery Room Air 07/12/17 07/12/17 07/12/17 07/12/17 21:07 21:22 21:37 21:52 Pulse 82 86 84 78 Resp 20 18 20 18 B/P (MAP) 147/67 (93) 157/63 (94) 181/81 (114) 145/71 (95) Pulse Ox 96 94 95 95 07/12/17 07/12/17 07/12/17 07/12/17 22:07 22:22 22:37 22:52 Pulse 76 108 72 70 Resp 20 18 20 18 B/P (MAP) 148/72 (97) 139/89 (106) 111/61 (78) 112/55 (74) Pulse Ox 95 95 95 93 07/12/17 07/13/17 07/13/17 07/13/17 23:40 00:45 03:25 07:00 Temp 97.6 97.8 97.9 97.6 97.8 97.9 Pulse 55 71 68 Resp 20 20 20 B/P (MAP) 121/62 (81) 116/72 (87) 127/68 (87) Pulse Ox 98 93 94 O2 Delivery Room Air Room Air Room Air Room Air 07/13/17 08:00 O2 Delivery Room Air MARY GRACE STOCK III DO Jul 13, 2017 10:48
[2017-07-13 11:00] VITALS: BP 144/72
[2017-07-13] MEDS ORDERED: FUROSEMIDE 40 MG/4 ML VIAL. IVP SCH (11:00)
--- NOTE | 2017-07-13 12:27 | HP ---
ADMIT DATE: 07/13/2017 CHIEF COMPLAINT: Weakness. HISTORY OF PRESENT ILLNESS: The patient is a pleasant 89-year-old male who presented to the ER with weakness, it is in the left arm. He also has some pain. He was brought in by EMS. He is having difficulty getting around for the past several days. He also had some EKG changes in the ambulance. We suspect this is just J-point elevation. The patient's imaging studies are showing vascular congestion. His BNP level is high. He has now been admitted for CHF. We are going to give him Lasix and consult Cardiology. PAST MEDICAL HISTORY: Reviewed on the computerized system, please refer to the computerized H and P. ALLERGIES: None. FAMILY HISTORY: Coronary artery disease. SOCIAL HISTORY: Does not drink, smoke or take drugs. MEDICATIONS: Reviewed. REVIEW OF SYSTEMS: GENERAL: Complains of weakness. SKIN: No bruising, hair changes or rashes. EYES: No blurred, double or loss of vision. NOSE AND THROAT: No history of nosebleeds, hoarseness or sore throat. HEART: No history of palpitations, chest pain or shortness of breath on exertion. LUNGS: Complains of Shortness of breath. GASTROINTESTINAL: Denies changes in appetite, nausea, vomiting, diarrhea or constipation. GENITOURINARY: No history of frequency, urgency, hesitancy or nocturia. NEUROLOGIC: Denies history of numbness, tingling, tremor or weakness. PSYCHIATRIC: No history of panic, anxiety or depression. ENDOCRINE: No history of heat or cold intolerance, polyuria or polydipsia. EXTREMITIES: Denies muscle weakness, joint pain, pain on walking or stiffness. PHYSICAL EXAMINATION: VITAL SIGNS: Temperature afebrile, pulse 60, respirations 20, blood pressure 127/68. GENERAL: He is alert, cooperative. HEART: Normal S1, S2. LUNGS: Diffuse crackles. ABDOMEN: Soft, positive bowel sounds. EXTREMITIES: 2+ edema. ENDOCRINE: No thyromegaly. LYMPHATICS: No cervical nodes. HEMATOPOIETIC: No bruising. ASSESSMENT AND PLAN: Acute on chronic systolic and diastolic heart failure. The patient has been admitted. We will give him IV Lasix, serial enzymes, serial EKGs. Consult cardiology, cardiac monitoring, continue home meds. NIAL K. CASTLE, DO DR: RALPH/soo JOB#: [id number] / [id number]
--- NOTE | 2017-07-13 13:08 | CARD ---
APPROVED REPORT EXAM: Two-dimensional and M-mode echocardiogram with Doppler and color Doppler. Other Information Quality : Technically Limited Rhythm : TachycardiaTechnically limited study due to positioning. INDICATION Congestive Heart Failure Elevated troponin level 2D DIMENSIONS Left Atrium(2D)3.5 (1.6-4.0cm)IVSd1.6 (0.7-1.1cm) Aortic Root(2D)3.6 (2.0-3.7cm)LVDd5.7 (3.9-5.9cm) LVOT Diameter2.0 (1.8-2.4cm)PWd1.6 (0.7-1.1cm) LVDs3.7 (2.5-4.0cm)FS (%) 24.6 % SV99.8 mlLVEF(%)53.0 (>50%) Aortic Valve AoV Peak Edd.111.0cm/sAoV VTI17.8cm AO Peak GR.4.9mmHgLVOT VTI 10.82cm AO Mean GR.3mmHgAVA (VTI)1.96cm2 AI P 1/2 [id number] Mitral Valve MV E Qmmwdydz14.3cm/sMV E Peak Gr.2mmHg MV DECEL [id number] A Nxrwprpm13.6cm/s MV E Mean Gr.1mmHgMV [id number] E/A Ratio0.9MV A [id number] MVA (PHT)2.89cm2 TDI Lateral E' P. V6.41cm/sMedial E' P. V4.44cm/s E/Lateral E'8.2E/Medial E'11.8 LEFT VENTRICLE The left ventricle is normal size. There is mild concentric left ventricular hypertrophy. Left ventri norma systolic function is low normal. The Ejection Fraction is estimated at 50%. Septal motion consist ent with conduction abnormality. Tissue Doppler imaging reveals mild left ventricular diastolic dysfu nction. Transmitral Doppler flow pattern is Grade I-abnormal relaxation pattern. RIGHT VENTRICLE The right ventricle is normal size. The right ventricular systolic function is normal. ATRIA The left atrium size is normal. The right atrium size is normal. The interatrial septum is intact wit h no evidence for an atrial septal defect or patent foramen ovale as noted on 2-D or Doppler imaging. AORTIC VALVE The aortic valve is mildly calcified. The aortic valve is trileaflet. Doppler and Color Flow revealed trace to mild aortic regurgitation. There is no significant aortic valvular stenosis. MITRAL VALVE Mitral annular calcification is mild. The mitral valve leaflets are calcified. There is no mitral karen ve stenosis. Doppler and Color Flow revealed no mitral valve regurgitation noted. TRICUSPID VALVE The tricuspid valve is normal in structure and function. Doppler and Color Flow revealed no tricuspid valve regurgitation noted. Unable to estimate PA pressure. There is no tricuspid valve stenosis. PULMONIC VALVE The pulmonic valve is not well visualized. Doppler and Color Flow revealed no pulmonic valvular regur gitation. There is no pulmonic valvular stenosis. GREAT VESSELS The aortic root is normal in size. Pulmonary vein flow not well visualized. The IVC was not visualize d. PERICARDIAL EFFUSION There is no evidence of significant pericardial effusion. Critical Notification Critical Value: No <Conclusion> The left ventricle is normal size. Left ventricle systolic function is low normal. The Ejection Fraction is estimated at 50%. There is mild concentric left ventricular hypertrophy. There is no significant aortic valvular stenosis. Doppler and Color Flow revealed trace to mild aortic regurgitation. Doppler and Color Flow revealed no mitral valve regurgitation noted. Doppler and Color Flow revealed no tricuspid valve regurgitation noted. Unable to estimate PA pressur e.
[2017-07-13] MEDS: ASPIRIN ENTERIC COATED 81 MG TABLET.DR. PO SCH (13:11)
[2017-07-13 19:44] VITALS: BP 124/71
[2017-07-13 22:11] VITALS: BP 117/59
[2017-07-14 03:09] VITALS: BP 128/61
[2017-07-14 04:10] LABS: BASO # 0.1 x10^3/uL (0.0-0.2); BASO % 1 % (0-3); EOS % 1 % (0-3); HEMATOCRIT 44.8 % (39.0-53.0); HEMOGLOBIN 15.4 g/dL (13.0-17.5); LYMPH # 1.4 x10^3/uL (1.0-4.8); LYMPH % 15 % (24-48); MEAN CORPUSCULAR HEMOGLOBIN 35 pg (25-35); MEAN CORPUSCULAR HGB CONC 34 g/dL (31-37); MEAN CORPUSCULAR VOLUME 100 fL (79-100); MONO % 9 % (0-9); NEUT % 74 % (31-73); PLATELET COUNT 156 x10^3/uL (140-400); RED BLOOD COUNT 4.46 x10^6/uL (4.30-5.70); RED CELL DISTRIBUTION WIDTH 13.2 % (11.5-14.5); WHITE BLOOD COUNT 9.4 x10^3/uL (4.0-11.0)
[2017-07-14 04:31] LABS: CALCIUM 8.7 mg/dL (8.5-10.1); CREATININE 0.9 mg/dL (0.7-1.3); GFR 79.5; POTASSIUM 3.4 mmol/L (3.5-5.1)
[2017-07-14 07:36] VITALS: BP 117/67
[2017-07-14] MEDS: FUROSEMIDE 40 MG TABLET. PO SCH (08:18)
[2017-07-14] MEDS: ASPIRIN ENTERIC COATED 81 MG TABLET.DR. PO SCH (08:18)
--- NOTE | 2017-07-14 09:26 | PDOC ---
CARDIO Progress Notes Date and Time Date of Service 07/14/17 Time of Evaluation 0922 Subjective Subjective: No Chest Pain, No shortness of breath Vitals Vitals Vital Signs Date Time Temp Pulse Resp B/P (MAP) Pulse Ox O2 Delivery O2 Flow Rate FiO2 07/14/17 07:36 97.9 70 17 117/67 (84) 93 Room Air 97.9 Weight Weight [ ] Laboratory Labs Laboratory Tests Test 07/14/17 03:05 White Blood Count 9.4 x10^3/uL (4.0-11.0) Red Blood Count 4.46 x10^6/uL (4.30-5.70) Hemoglobin 15.4 g/dL (13.0-17.5) Hematocrit 44.8 % (39.0-53.0) Mean Corpuscular Volume 100 fL (79-100) Mean Corpuscular Hemoglobin 35 pg (25-35) Mean Corpuscular Hemoglobin Concent 34 g/dL (31-37) Red Cell Distribution Width 13.2 % (11.5-14.5) Platelet Count 156 x10^3/uL (140-400) Neutrophils (%) (Auto) 74 % (31-73) Lymphocytes (%) (Auto) 15 % (24-48) Monocytes (%) (Auto) 9 % (0-9) Eosinophils (%) (Auto) 1 % (0-3) Basophils (%) (Auto) 1 % (0-3) Neutrophils # (Auto) 6.9 x10^3uL (1.8-7.7) Lymphocytes # (Auto) 1.4 x10^3/uL (1.0-4.8) Monocytes # (Auto) 0.8 x10^3/uL (0.0-1.1) Eosinophils # (Auto) 0.1 x10^3/uL (0.0-0.7) Basophils # (Auto) 0.1 x10^3/uL (0.0-0.2) Sodium Level 138 mmol/L (136-145) Potassium Level 3.4 mmol/L (3.5-5.1) Chloride Level 102 mmol/L (98-107) Carbon Dioxide Level 30 mmol/L (21-32) Anion Gap 6 (6-14) Blood Urea Nitrogen 15 mg/dL (8-26) Creatinine 0.9 mg/dL (0.7-1.3) Estimated GFR (Cockcroft-Gault) 79.5 Glucose Level 112 mg/dL (70-99) Calcium Level 8.7 mg/dL (8.5-10.1) VC-Ukl-X-Type Natriuretic Peptide 2811 pg/mL (0-449) Physical Exam HEENT: Neck Supple W Full Motion Chest: Symmetric LUNGS: Other (diminished bases ) Heart: S1S2, RRR, no murmurs Abdomen: Soft N/T Extremities: Other (2+ RLE and 1+ LLE edema) Neurology: alert, oriented, follow commands Assessment Assessment 1. Mild acute diastolic heart failure; NT Pro BNP mildly elevated. CXR without significant vascular congestion. Compensated. Echo shows preserved LV function with an EF of 50%. 2. Mild troponin elevation; peak 0.071. EKG with LBBB; no previous for comparison. stable. CP free. 3. Hyperlipidemia; LDL 144 4. Weakness/debility/tremors 5. Hyperglycemia; as per PCP 6. Hypokalemia Recommendations Replace K. Monitor lytes Add statin Patient agreeable to further ischemic testing. Will proceed with lexiscan MPI today. Consider neuro evaluation given significant tremors Further recommendations pending diagnostics. ISAIAH CH APRN Jul 14, 2017 09:26
[2017-07-14] MEDS ORDERED: POTASSIUM CHLORIDE 20 MEQ TABLET.ER. PO ONE ×2 (09:30→16:15)
[2017-07-14] MEDS ORDERED: REGADENOSON 0.4 MG/5 ML DISP.SYRIN. IV ONE (10:15)
[2017-07-14 10:56] VITALS: BP 129/65
--- NOTE | 2017-07-14 11:12 | PDOC ---
PROGRESS NOTES Chief Complaint Chief Complaint elevated BNP left arm weakness History of Present Illness History of Present Illness Patient awake and conversant. Patient tremor noticeable. Spoke with cardio [employer] who also noticed tremor and she recommended to consult neuro. Per cardio we are awaiting stress test on patient. Vitals Vitals Vital Signs Date Time Temp Pulse Resp B/P (MAP) Pulse Ox O2 Delivery O2 Flow Rate FiO2 07/14/17 10:56 98.1 73 16 129/65 (86) 93 Room Air 98.1 Physical Exam Physical Exam Patient sitting in bed. Conversant with healthcare team and answered questions with appropriate, complete responses. 2+ edema present on both legs. SCDs and compression stockings in place. Crackles present on auscultation of left lung. CXR shows some opacities on L side but WBC/temp not elevated so no acute concerns at this time. General: Alert, Oriented X3, Cooperative, No acute distress Heart: Regular rate, Normal S1, Normal S2, Other (frequent PVC's, distant heart tones ) Lungs: Clear, Crackles (left lung) Abdomen: Soft, No tenderness Extremities: No edema (2+ edema still present), Normal pulses, Other (2+ RLE and 1+ LLE edema ) Labs LABS Laboratory Tests Test 07/14/17 03:05 White Blood Count 9.4 x10^3/uL (4.0-11.0) Red Blood Count 4.46 x10^6/uL (4.30-5.70) Hemoglobin 15.4 g/dL (13.0-17.5) Hematocrit 44.8 % (39.0-53.0) Mean Corpuscular Volume 100 fL (79-100) Mean Corpuscular Hemoglobin 35 pg (25-35) Mean Corpuscular Hemoglobin Concent 34 g/dL (31-37) Red Cell Distribution Width 13.2 % (11.5-14.5) Platelet Count 156 x10^3/uL (140-400) Neutrophils (%) (Auto) 74 % (31-73) Lymphocytes (%) (Auto) 15 % (24-48) Monocytes (%) (Auto) 9 % (0-9) Eosinophils (%) (Auto) 1 % (0-3) Basophils (%) (Auto) 1 % (0-3) Neutrophils # (Auto) 6.9 x10^3uL (1.8-7.7) Lymphocytes # (Auto) 1.4 x10^3/uL (1.0-4.8) Monocytes # (Auto) 0.8 x10^3/uL (0.0-1.1) Eosinophils # (Auto) 0.1 x10^3/uL (0.0-0.7) Basophils # (Auto) 0.1 x10^3/uL (0.0-0.2) Sodium Level 138 mmol/L (136-145) Potassium Level 3.4 mmol/L (3.5-5.1) Chloride Level 102 mmol/L (98-107) Carbon Dioxide Level 30 mmol/L (21-32) Anion Gap 6 (6-14) Blood Urea Nitrogen 15 mg/dL (8-26) Creatinine 0.9 mg/dL (0.7-1.3) Estimated GFR (Cockcroft-Gault) 79.5 Glucose Level 112 mg/dL (70-99) Calcium Level 8.7 mg/dL (8.5-10.1) Magnesium Level 2.2 mg/dL (1.8-2.4) XV-Mpi-R-Type Natriuretic Peptide 2811 pg/mL (0-449) Review of Systems Review of Systems Patient admits to feeling tired. Patient admits to feeling hungry. Assessment and Plan Assessmemt and Plan Problems Medical Problems: (1) Elevated brain natriuretic peptide (BNP) level Status: Acute (2) Left arm weakness Status: Acute Assessment: elevated BNP left arm weakness Plan: 1. Recheck labs 2. Consult Neuro re tremor 3. Continue OT/PT 4. Appreciate wound care plan 5. appreciate cardio plan Problems: Comment Review of Relevant I have reviewed the following items kathrin (where applicable) has been applied. Labs Laboratory Tests Test 07/12/17 20:20 07/12/17 20:23 07/12/17 20:28 07/12/17 20:49 White Blood Count 6.8 x10^3/uL (4.0-11.0) Red Blood Count 4.78 x10^6/uL (4.30-5.70) Hemoglobin 16.4 g/dL (13.0-17.5) Hematocrit 48.2 % (39.0-53.0) Mean Corpuscular Volume 101 fL (79-100) Mean Corpuscular Hemoglobin 34 pg (25-35) Mean Corpuscular Hemoglobin Concent 34 g/dL (31-37) Red Cell Distribution Width 13.6 % (11.5-14.5) Platelet Count 243 x10^3/uL (140-400) Neutrophils (%) (Auto) 73 % (31-73) Lymphocytes (%) (Auto) 17 % (24-48) Monocytes (%) (Auto) 8 % (0-9) Eosinophils (%) (Auto) 1 % (0-3) Basophils (%) (Auto) 1 % (0-3) Neutrophils # (Auto) 5.0 x10^3uL (1.8-7.7) Lymphocytes # (Auto) 1.2 x10^3/uL (1.0-4.8) Monocytes # (Auto) 0.6 x10^3/uL (0.0-1.1) Eosinophils # (Auto) 0.1 x10^3/uL (0.0-0.7) Basophils # (Auto) 0.1 x10^3/uL (0.0-0.2) Prothrombin Time 13.6 SEC (11.7-14.0) Prothromb Time International Ratio 1.1 (0.8-1.1) Activated Partial Thromboplast Time 30 SEC (24-38) Bedside Troponin I 0.06 ng/ml (<0.08) Bedside Hemoglobin 16.7 g/dL (14-18) Bedside Hematocrit 49 % (37-52) Bedside Sodium 140 mmol/L (135-145) Bedside Potassium 4.6 mmol/L (3.5-5.0) Bedside Chloride 98 mmol/L (98-110) Bedside Total CO2 29 mmol/L (23-32) Anion Gap 18 mmol/L (6-14) 6 (6-14) Bedside Blood Urea Nitrogen 17 mg/dL (8-26) Bedside Creatinine 0.8 mg/dL (0.5-1.4) Glucose Level 151 mg/dL (70-99) 160 mg/dL (70-99) Bedside Ionized Calcium (Migdalia) 0.48 mmol/L (1.13-1.32) Sodium Level 138 mmol/L (136-145) Potassium Level 4.4 mmol/L (3.5-5.1) Chloride Level 102 mmol/L (98-107) Carbon Dioxide Level 30 mmol/L (21-32) Blood Urea Nitrogen 14 mg/dL (8-26) Creatinine 1.0 mg/dL (0.7-1.3) Estimated GFR (Cockcroft-Gault) 70.4 BUN/Creatinine Ratio 14 (6-20) Calcium Level 9.1 mg/dL (8.5-10.1) Magnesium Level 2.1 mg/dL (1.8-2.4) Total Bilirubin 1.0 mg/dL (0.2-1.0) Aspartate Amino Transf (AST/SGOT) 20 U/L (15-37) Alanine Aminotransferase (ALT/SGPT) 18 U/L (16-63) Alkaline Phosphatase 67 U/L (46-116) Troponin I Quantitative 0.051 ng/mL (0.000-0.055) FI-Vcy-A-Type Natriuretic Peptide 2556 pg/mL (0-449) Total Protein 7.6 g/dL (6.4-8.2) Albumin 3.7 g/dL (3.4-5.0) Albumin/Globulin Ratio 0.9 (1.0-1.7) Lipase 144 U/L (73-393) Thyroid Stimulating Hormone (TSH) 1.941 uIU/mL (0.358-3.74) Test 07/12/17 21:51 07/13/17 03:45 07/13/17 09:20 07/14/17 03:05 Urine Collection Type Unknown Urine Color Yellow Urine Clarity Clear Urine pH 7.0 Urine Specific [place] 1.025 Urine Protein Negative mg/dL (NEG-TRACE) Urine Glucose (UA) Negative mg/dL (NEG) Urine Ketones (Stick) Trace mg/dL (NEG) Urine Blood Negative (NEG) Urine Nitrite Negative (NEG) Urine Bilirubin Negative (NEG) Urine Urobilinogen Dipstick 1.0 mg/dL (0.2 mg/dL) Urine Leukocyte Esterase Negative (NEG) Urine RBC Occ /HPF (0-2) Urine WBC 1-4 /HPF (0-4) Urine Squamous Epithelial Cells Few /LPF Urine Bacteria 0 /HPF (0-FEW) Urine Mucus Slight /LPF White Blood Count 9.1 x10^3/uL (4.0-11.0) 9.4 x10^3/uL (4.0-11.0) Red Blood Count 4.71 x10^6/uL (4.30-5.70) 4.46 x10^6/uL (4.30-5.70) Hemoglobin 16.2 g/dL (13.0-17.5) 15.4 g/dL (13.0-17.5) Hematocrit 47.1 % (39.0-53.0) 44.8 % (39.0-53.0) Mean Corpuscular Volume 100 fL (79-100) 100 fL (79-100) Mean Corpuscular Hemoglobin 34 pg (25-35) 35 pg (25-35) Mean Corpuscular Hemoglobin Concent 34 g/dL (31-37) 34 g/dL (31-37) Red Cell Distribution Width 13.5 % (11.5-14.5) 13.2 % (11.5-14.5) Platelet Count 164 x10^3/uL (140-400) 156 x10^3/uL (140-400) Neutrophils (%) (Auto) 77 % (31-73) 74 % (31-73) Lymphocytes (%) (Auto) 13 % (24-48) 15 % (24-48) Monocytes (%) (Auto) 8 % (0-9) 9 % (0-9) Eosinophils (%) (Auto) 1 % (0-3) 1 % (0-3) Basophils (%) (Auto) 0 % (0-3) 1 % (0-3) Neutrophils # (Auto) 7.0 x10^3uL (1.8-7.7) 6.9 x10^3uL (1.8-7.7) Lymphocytes # (Auto) 1.2 x10^3/uL (1.0-4.8) 1.4 x10^3/uL (1.0-4.8) Monocytes # (Auto) 0.8 x10^3/uL (0.0-1.1) 0.8 x10^3/uL (0.0-1.1) Eosinophils # (Auto) 0.1 x10^3/uL (0.0-0.7) 0.1 x10^3/uL (0.0-0.7) Basophils # (Auto) 0.0 x10^3/uL (0.0-0.2) 0.1 x10^3/uL (0.0-0.2) Sodium Level 140 mmol/L (136-145) 138 mmol/L (136-145) Potassium Level 4.2 mmol/L (3.5-5.1) 3.4 mmol/L (3.5-5.1) Chloride Level 102 mmol/L (98-107) 102 mmol/L (98-107) Carbon Dioxide Level 32 mmol/L (21-32) 30 mmol/L (21-32) Anion Gap 6 (6-14) 6 (6-14) Blood Urea Nitrogen 13 mg/dL (8-26) 15 mg/dL (8-26) Creatinine 0.9 mg/dL (0.7-1.3) 0.9 mg/dL (0.7-1.3) Estimated GFR (Cockcroft-Gault) 79.5 79.5 Glucose Level 126 mg/dL (70-99) 112 mg/dL (70-99) Calcium Level 8.8 mg/dL (8.5-10.1) 8.7 mg/dL (8.5-10.1) Magnesium Level 2.2 mg/dL (1.8-2.4) 2.2 mg/dL (1.8-2.4) Troponin I Quantitative 0.071 ng/mL (0.000-0.055) 0.069 ng/mL (0.000-0.055) Triglycerides Level 52 mg/dL (0-150) Cholesterol Level 217 mg/dL (0-200) LDL Cholesterol, Calculated 144 mg/dL (0-100) VLDL Cholesterol, Calculated 10 mg/dL (0-40) Non-HDL Cholesterol Calculated 154 mg/dL (0-129) HDL Cholesterol 63 mg/dL (40-60) Cholesterol/HDL Ratio 3.4 Thyroid Stimulating Hormone (TSH) 1.962 uIU/mL (0.358-3.74) DH-Dhf-K-Type Natriuretic Peptide 2811 pg/mL (0-449) Laboratory Tests Test 07/14/17 03:05 White Blood Count 9.4 x10^3/uL (4.0-11.0) Red Blood Count 4.46 x10^6/uL (4.30-5.70) Hemoglobin 15.4 g/dL (13.0-17.5) Hematocrit 44.8 % (39.0-53.0) Mean Corpuscular Volume 100 fL (79-100) Mean Corpuscular Hemoglobin 35 pg (25-35) Mean Corpuscular Hemoglobin Concent 34 g/dL (31-37) Red Cell Distribution Width 13.2 % (11.5-14.5) Platelet Count 156 x10^3/uL (140-400) Neutrophils (%) (Auto) 74 % (31-73) Lymphocytes (%) (Auto) 15 % (24-48) Monocytes (%) (Auto) 9 % (0-9) Eosinophils (%) (Auto) 1 % (0-3) Basophils (%) (Auto) 1 % (0-3) Neutrophils # (Auto) 6.9 x10^3uL (1.8-7.7) Lymphocytes # (Auto) 1.4 x10^3/uL (1.0-4.8) Monocytes # (Auto) 0.8 x10^3/uL (0.0-1.1) Eosinophils # (Auto) 0.1 x10^3/uL (0.0-0.7) Basophils # (Auto) 0.1 x10^3/uL (0.0-0.2) Sodium Level 138 mmol/L (136-145) Potassium Level 3.4 mmol/L (3.5-5.1) Chloride Level 102 mmol/L (98-107) Carbon Dioxide Level 30 mmol/L (21-32) Anion Gap 6 (6-14) Blood Urea Nitrogen 15 mg/dL (8-26) Creatinine 0.9 mg/dL (0.7-1.3) Estimated GFR (Cockcroft-Gault) 79.5 Glucose Level 112 mg/dL (70-99) Calcium Level 8.7 mg/dL (8.5-10.1) Magnesium Level 2.2 mg/dL (1.8-2.4) JP-Ebp-E-Type Natriuretic Peptide 2811 pg/mL (0-449) Medications Current Medications Ondansetron HCl (Zofran) 4 mg PRN Q8HRS PRN IV NAUSEA/VOMITING; Start 07/12/17 at 21:45; Stop 07/13/17 at 21:44; Status DC Fentanyl Citrate (Fentanyl 2ml Vial) 50 mcg PRN Q2HR PRN IV PAIN; Start at 21:45; Stop 07/13/17 at 21:44; Status DC Furosemide (Lasix) 40 mg DAILY IVP Last administered on 07/13/17 11:12; Start 07/13/17 at 11:00; Stop 07/13/17 at 12:55; Status DC Aspirin (Ecotrin) 81 mg DAILYWBKFT PO Last administered on 07/14/17 08:18; Start 07/13/17 at 14:00 Potassium Chloride (Klor-Con) 20 meq DAILYWBKFT PO ; Start 07/14/17 at 14:00 Furosemide (Lasix) 40 mg DAILY PO Last administered on 07/14/17 08:18; Start 07/14/17 at 09:00 Potassium Chloride (Klor-Con) 20 meq 1X ONCE PO ; Start 07/14/17 at 09:30; Stop 07/14/17 at 09:31; Status DC Regadenoson (Lexiscan) 0.4 mg 1X ONCE IV ; Start 07/14/17 at 10:15; Stop at 10:16; Status DC Active Scripts Active Reported Multivitamins (Multivitamin) 1 Each Tablet 1 Each PO DAILY Aspir 81 (Aspirin) 81 Mg Tablet. 1 Tab PO DAILY Vitals/I & O Vital Sign - Last 24 Hours 07/13/17 07/13/17 07/13/17 07/14/17 19:44 20:00 22:11 03:09 Temp 98.6 98.9 98.3 98.6 98.9 98.3 Pulse 71 52 66 Resp 20 16 17 B/P (MAP) 124/71 (88) 117/59 (78) 128/61 (83) Pulse Ox 93 94 93 O2 Delivery Room Air Room Air Room Air Room Air 07/14/17 07/14/17 07:36 10:56 Temp 97.9 98.1 97.9 98.1 Pulse 70 73 Resp 17 16 B/P (MAP) 117/67 (84) 129/65 (86) Pulse Ox 93 93 O2 Delivery Room Air Room Air MARY GRACE STOCK III DO Jul 14, 2017 11:11
--- NOTE | 2017-07-14 14:02 | PDOC2 ---
NEUROLOGY CONSULT Date of Admission Date of Admission DATE: 07/14/17 TIME: 13:54 Reason for Consult Reason for Consult: Tremors Referring Physician Referring Physician: Dr. Usha Wild Source Source: Caregiver, Chart review, Patient History of Present Illness History of Present Illness The patient is an 89-year-old right-handed male admitted 2 days ago because of feelings of weakness, off balance, found to have hyperglycemia, mild congestive heart failure, and elevated troponin levels. I'm asked to see him regarding tremors. He says that he has had this for years. He has not sought medical treatment for the tremors because he does not think it causes any problem but he does admit he sometimes has trouble eating. There is no history of stroke, seizure, or head injury. He lives with his disabled daughter. He gets around with a cane or a walker. Past Medical History Cardiovascular: CHF, HTN CENTRAL NERVOUS SYSTEM: Other (tremor) Endocrine: Diabetes Past Surgical History Past Surgical History: No pertinent history Family History Family History: No pertinent hx (no history of tremor) Social History Social History , lives with disabled daughter, no tobacco or alcohol Current Medications Current Medications Current Medications Ondansetron HCl (Zofran) 4 mg PRN Q8HRS PRN IV NAUSEA/VOMITING; Start 07/12/17 at 21:45; Stop 07/13/17 at 21:44; Status DC Fentanyl Citrate (Fentanyl 2ml Vial) 50 mcg PRN Q2HR PRN IV PAIN; Start at 21:45; Stop 07/13/17 at 21:44; Status DC Furosemide (Lasix) 40 mg DAILY IVP Last administered on 07/13/17 11:12; Start 07/13/17 at 11:00; Stop 07/13/17 at 12:55; Status DC Aspirin (Ecotrin) 81 mg DAILYWBKFT PO Last administered on 07/14/17 08:18; Start 07/13/17 at 14:00 Potassium Chloride (Klor-Con) 20 meq DAILYWBKFT PO ; Start 07/14/17 at 14:00 Furosemide (Lasix) 40 mg DAILY PO Last administered on 07/14/17 08:18; Start 07/14/17 at 09:00 Potassium Chloride (Klor-Con) 20 meq 1X ONCE PO ; Start 07/14/17 at 09:30; Stop 07/14/17 at 09:31; Status DC Regadenoson (Lexiscan) 0.4 mg 1X ONCE IV Last administered on 07/14/17t 11:19 ; Start 07/14/17 at 10:15; Stop 07/14/17 at 10:16; Status DC Active Scripts Active Reported Multivitamins (Multivitamin) 1 Each Tablet 1 Each PO DAILY Aspir 81 (Aspirin) 81 Mg Tablet. 1 Tab PO DAILY Allergies Allergies: Coded Allergies: No Known Drug Allergies (Unverified , 07/12/17) ROS Review of System Patient denies fevers, chills, weight loss, dyspnea, angina, abdominal pain, change in bowels, or dysuria. 14 point review of systems is negative. Physical Exam Physical Examination PHYSICAL EXAMINATION: Vital signs: see above. General appearance is normal and in no acute distress. HEENT: Normocephalic and nontraumatic. Eyes, nose, ears, and throat are unremarkable. Neck is supple. No lymphadenopathy. No bruits are heard over the carotid artery. No crepitus. NEUROLOGICAL EXAMINATION: Mental Status Examination: Alert. Oriented to time, place, and person. Answers questions and follows commends. Hard of hearing. Pupils are equal round and reactive to light and accommodation. Extraocular movements are intact. Visual field exam shows no defect on the direct confrontation. No motor or sensory deficits on the facial exam. Uvula in the midline and the soft palate elevated symmetrically. No deviation of the tongue to any direction. Shoulder shrug normal. Muscle tone is normal. Muscle strength is 4/5. Deep tendon reflexes are 1+ all around. Plantar reflex is with flexion response bilaterally. Jjrkti-vn-toms test performance is accurate. Alternative movements are accurate. Gait not tested. He has postural limb and "yes" head tremor. Sensory exam shows no deficits. No cerebellar signs are elicited. Vitals VITALS Vital Signs Date Time Temp Pulse Resp B/P (MAP) Pulse Ox O2 Delivery O2 Flow Rate FiO2 07/14/17 10:56 98.1 73 16 129/65 (86) 93 Room Air 98.1 Labs Labs Laboratory Tests Test 07/12/17 20:20 07/12/17 20:23 07/12/17 20:28 07/12/17 20:49 White Blood Count 6.8 x10^3/uL (4.0-11.0) Red Blood Count 4.78 x10^6/uL (4.30-5.70) Hemoglobin 16.4 g/dL (13.0-17.5) Hematocrit 48.2 % (39.0-53.0) Mean Corpuscular Volume 101 fL (79-100) Mean Corpuscular Hemoglobin 34 pg (25-35) Mean Corpuscular Hemoglobin Concent 34 g/dL (31-37) Red Cell Distribution Width 13.6 % (11.5-14.5) Platelet Count 243 x10^3/uL (140-400) Neutrophils (%) (Auto) 73 % (31-73) Lymphocytes (%) (Auto) 17 % (24-48) Monocytes (%) (Auto) 8 % (0-9) Eosinophils (%) (Auto) 1 % (0-3) Basophils (%) (Auto) 1 % (0-3) Neutrophils # (Auto) 5.0 x10^3uL (1.8-7.7) Lymphocytes # (Auto) 1.2 x10^3/uL (1.0-4.8) Monocytes # (Auto) 0.6 x10^3/uL (0.0-1.1) Eosinophils # (Auto) 0.1 x10^3/uL (0.0-0.7) Basophils # (Auto) 0.1 x10^3/uL (0.0-0.2) Prothrombin Time 13.6 SEC (11.7-14.0) Prothromb Time International Ratio 1.1 (0.8-1.1) Activated Partial Thromboplast Time 30 SEC (24-38) Bedside Troponin I 0.06 ng/ml (<0.08) Bedside Hemoglobin 16.7 g/dL (14-18) Bedside Hematocrit 49 % (37-52) Bedside Sodium 140 mmol/L (135-145) Bedside Potassium 4.6 mmol/L (3.5-5.0) Bedside Chloride 98 mmol/L (98-110) Bedside Total CO2 29 mmol/L (23-32) Anion Gap 18 mmol/L (6-14) 6 (6-14) Bedside Blood Urea Nitrogen 17 mg/dL (8-26) Bedside Creatinine 0.8 mg/dL (0.5-1.4) Glucose Level 151 mg/dL (70-99) 160 mg/dL (70-99) Bedside Ionized Calcium (Migdalia) 0.48 mmol/L (1.13-1.32) Sodium Level 138 mmol/L (136-145) Potassium Level 4.4 mmol/L (3.5-5.1) Chloride Level 102 mmol/L (98-107) Carbon Dioxide Level 30 mmol/L (21-32) Blood Urea Nitrogen 14 mg/dL (8-26) Creatinine 1.0 mg/dL (0.7-1.3) Estimated GFR (Cockcroft-Gault) 70.4 BUN/Creatinine Ratio 14 (6-20) Calcium Level 9.1 mg/dL (8.5-10.1) Magnesium Level 2.1 mg/dL (1.8-2.4) Total Bilirubin 1.0 mg/dL (0.2-1.0) Aspartate Amino Transf (AST/SGOT) 20 U/L (15-37) Alanine Aminotransferase (ALT/SGPT) 18 U/L (16-63) Alkaline Phosphatase 67 U/L (46-116) Troponin I Quantitative 0.051 ng/mL (0.000-0.055) JJ-Lbb-X-Type Natriuretic Peptide 2556 pg/mL (0-449) Total Protein 7.6 g/dL (6.4-8.2) Albumin 3.7 g/dL (3.4-5.0) Albumin/Globulin Ratio 0.9 (1.0-1.7) Lipase 144 U/L (73-393) Thyroid Stimulating Hormone (TSH) 1.941 uIU/mL (0.358-3.74) Test 07/12/17 21:51 07/13/17 03:45 07/13/17 09:20 07/14/17 03:05 Urine Collection Type Unknown Urine Color Yellow Urine Clarity Clear Urine pH 7.0 Urine Specific [place] 1.025 Urine Protein Negative mg/dL (NEG-TRACE) Urine Glucose (UA) Negative mg/dL (NEG) Urine Ketones (Stick) Trace mg/dL (NEG) Urine Blood Negative (NEG) Urine Nitrite Negative (NEG) Urine Bilirubin Negative (NEG) Urine Urobilinogen Dipstick 1.0 mg/dL (0.2 mg/dL) Urine Leukocyte Esterase Negative (NEG) Urine RBC Occ /HPF (0-2) Urine WBC 1-4 /HPF (0-4) Urine Squamous Epithelial Cells Few /LPF Urine Bacteria 0 /HPF (0-FEW) Urine Mucus Slight /LPF White Blood Count 9.1 x10^3/uL (4.0-11.0) 9.4 x10^3/uL (4.0-11.0) Red Blood Count 4.71 x10^6/uL (4.30-5.70) 4.46 x10^6/uL (4.30-5.70) Hemoglobin 16.2 g/dL (13.0-17.5) 15.4 g/dL (13.0-17.5) Hematocrit 47.1 % (39.0-53.0) 44.8 % (39.0-53.0) Mean Corpuscular Volume 100 fL (79-100) 100 fL (79-100) Mean Corpuscular Hemoglobin 34 pg (25-35) 35 pg (25-35) Mean Corpuscular Hemoglobin Concent 34 g/dL (31-37) 34 g/dL (31-37) Red Cell Distribution Width 13.5 % (11.5-14.5) 13.2 % (11.5-14.5) Platelet Count 164 x10^3/uL (140-400) 156 x10^3/uL (140-400) Neutrophils (%) (Auto) 77 % (31-73) 74 % (31-73) Lymphocytes (%) (Auto) 13 % (24-48) 15 % (24-48) Monocytes (%) (Auto) 8 % (0-9) 9 % (0-9) Eosinophils (%) (Auto) 1 % (0-3) 1 % (0-3) Basophils (%) (Auto) 0 % (0-3) 1 % (0-3) Neutrophils # (Auto) 7.0 x10^3uL (1.8-7.7) 6.9 x10^3uL (1.8-7.7) Lymphocytes # (Auto) 1.2 x10^3/uL (1.0-4.8) 1.4 x10^3/uL (1.0-4.8) Monocytes # (Auto) 0.8 x10^3/uL (0.0-1.1) 0.8 x10^3/uL (0.0-1.1) Eosinophils # (Auto) 0.1 x10^3/uL (0.0-0.7) 0.1 x10^3/uL (0.0-0.7) Basophils # (Auto) 0.0 x10^3/uL (0.0-0.2) 0.1 x10^3/uL (0.0-0.2) Sodium Level 140 mmol/L (136-145) 138 mmol/L (136-145) Potassium Level 4.2 mmol/L (3.5-5.1) 3.4 mmol/L (3.5-5.1) Chloride Level 102 mmol/L (98-107) 102 mmol/L (98-107) Carbon Dioxide Level 32 mmol/L (21-32) 30 mmol/L (21-32) Anion Gap 6 (6-14) 6 (6-14) Blood Urea Nitrogen 13 mg/dL (8-26) 15 mg/dL (8-26) Creatinine 0.9 mg/dL (0.7-1.3) 0.9 mg/dL (0.7-1.3) Estimated GFR (Cockcroft-Gault) 79.5 79.5 Glucose Level 126 mg/dL (70-99) 112 mg/dL (70-99) Calcium Level 8.8 mg/dL (8.5-10.1) 8.7 mg/dL (8.5-10.1) Magnesium Level 2.2 mg/dL (1.8-2.4) 2.2 mg/dL (1.8-2.4) Troponin I Quantitative 0.071 ng/mL (0.000-0.055) 0.069 ng/mL (0.000-0.055) Triglycerides Level 52 mg/dL (0-150) Cholesterol Level 217 mg/dL (0-200) LDL Cholesterol, Calculated 144 mg/dL (0-100) VLDL Cholesterol, Calculated 10 mg/dL (0-40) Non-HDL Cholesterol Calculated 154 mg/dL (0-129) HDL Cholesterol 63 mg/dL (40-60) Cholesterol/HDL Ratio 3.4 Thyroid Stimulating Hormone (TSH) 1.962 uIU/mL (0.358-3.74) AI-Yci-H-Type Natriuretic Peptide 2811 pg/mL (0-449) Laboratory Tests Test 07/14/17 03:05 White Blood Count 9.4 x10^3/uL (4.0-11.0) Red Blood Count 4.46 x10^6/uL (4.30-5.70) Hemoglobin 15.4 g/dL (13.0-17.5) Hematocrit 44.8 % (39.0-53.0) Mean Corpuscular Volume 100 fL (79-100) Mean Corpuscular Hemoglobin 35 pg (25-35) Mean Corpuscular Hemoglobin Concent 34 g/dL (31-37) Red Cell Distribution Width 13.2 % (11.5-14.5) Platelet Count 156 x10^3/uL (140-400) Neutrophils (%) (Auto) 74 % (31-73) Lymphocytes (%) (Auto) 15 % (24-48) Monocytes (%) (Auto) 9 % (0-9) Eosinophils (%) (Auto) 1 % (0-3) Basophils (%) (Auto) 1 % (0-3) Neutrophils # (Auto) 6.9 x10^3uL (1.8-7.7) Lymphocytes # (Auto) 1.4 x10^3/uL (1.0-4.8) Monocytes # (Auto) 0.8 x10^3/uL (0.0-1.1) Eosinophils # (Auto) 0.1 x10^3/uL (0.0-0.7) Basophils # (Auto) 0.1 x10^3/uL (0.0-0.2) Sodium Level 138 mmol/L (136-145) Potassium Level 3.4 mmol/L (3.5-5.1) Chloride Level 102 mmol/L (98-107) Carbon Dioxide Level 30 mmol/L (21-32) Anion Gap 6 (6-14) Blood Urea Nitrogen 15 mg/dL (8-26) Creatinine 0.9 mg/dL (0.7-1.3) Estimated GFR (Cockcroft-Gault) 79.5 Glucose Level 112 mg/dL (70-99) Calcium Level 8.7 mg/dL (8.5-10.1) Magnesium Level 2.2 mg/dL (1.8-2.4) [id number] Natriuretic Peptide 2811 pg/mL (0-449) Images Images CT scan head findings: Prominence of cortical sulci and ventricular system is noted consistent with age-related atrophy. There are areas of low-attenuation in both periventricular and subcortical deep white matter suggesting small vessel ischemic changes. Normal cortés-white differentiation is maintained. There is no extra axial fluid collection, intraparenchymal hemorrhage or mass lesion. The visualized orbits, paranasal sinuses and the mastoid air cells are clear. The calvarium is intact. Impression: 1. No acute intracranial process detected. 2. Age-related atrophy and bilateral periventricular small vessel ischemic changes. End Impression. CT cervical spine findings: Normal sagittal alignment is preserved. The vertebral body heights are maintained. There is narrowing of C3/4 C5/6 and C6/7 intravertebral disc spaces with osteophytic spurring centered mainly around C5/6 level. Multilevel bilateral apophyseal joint hypertrophic changes are seen. There is no ferdinand or retrolisthesis. No prevertebral soft tissue swelling is identified. There are no fractures. No definite lymphadenopathy or masses are seen within the neck. The visualized thyroid and salivary glands appears preserved. Impression: 1. No acute abnormality seen in the CT scan cervical spine. 2. Spondylotic changes and multilevel disc degenerative changes are noted. Assessment/Plan Assessment/Plan Impression: Essential tremor, no evidence of parkinsonism I suspect some multifactorial gait disorder of the elderly. Hard of hearing, may also have some mild age-appropriate dementia. No evidence of acute stroke or myelopathy. Recommendations: Trial of Mysoline, discussed side effects. Rehabilitation modalities. He is very scared that he can't return home and he is worried about the safety of his house, but we need to see how physical and occupational therapy deem his safety. Thank you for letting me help with the patient's care. NALLELY FARLEY MD Jul 14, 2017 14:02
[2017-07-14] MEDS ORDERED: PRIMIDONE 50 MG TABLET PO SCH (14:30)
[2017-07-14 15:41] VITALS: BP 123/79
--- NOTE | 2017-07-14 15:46 | RAD ---
APPROVED REPORT Test Type: Pharmacological Stress Nurse/Tech: Carmella Garner RN Test Indications: abn ekg, elevated troponin Cardiac History: No known cardiac Medications: See Electronic Medical Record Medical History: See Electronic Medical Record Resting ECG: SR with left bbb with ST elevation in leads V1-V3; and 1 degree AVB, CELIA .34 Resting Heart Rate: 71 bpm Resting Blood Pressure: 129/59mmHg Pretest Chest Pain: No chest pain Nurse/Tech Notes S1S2, Lungs CTA, Pt. had rapid RR; but denied SOB. Consent: The procedure was explained to the patient in lay terms. Informed consent was witnessed. Clint eout was entered into [facility]. History and Stress Test performed by RT Anna (R) (N) Pharm. Details Pharmacologic stress testing was performed using 0.4mg per 5ml of regadenoson given intravenously ove r 7-10 seconds. Stress Symptoms No chest pain or symptoms. POST EXERCISE Reason for Termination: Infusion complete Max HR: 118 bpm Max Blood Pressure: 137/54mmHg Chest Pain: No. Arrhythmia: Yes. Pt started having frequent PVC's after lexiscan given. ST Change: No. INTERPRETATION Stress EKG Conclusion: Baseline EKG showed sinus rhythm with LBBB. No ischemic changes at peak stres s. No arrhythmias. LV Perfusion Scintigraphic images did not show any significant fixed or reversible defects. Wall Motion Moderate left ventricle systolic dysfunction with ejection fraction Of 34%. Conclusion 1. Regadenoson cardioisotope stress test did not show any evidence of ischemia or infarct. 2. Moderate left ventricle systolic dysfunction with ejection fraction calculated at 34 %. 3. Intermediate risk for cardiac events based on diminished left ventricular function.
[2017-07-14] MEDS: POTASSIUM CHLORIDE 20 MEQ TABLET.ER. PO SCH (16:09)
[2017-07-14 19:50] VITALS: BP 121/68
[2017-07-14] MEDS ORDERED: ATORVASTATIN CALCIUM 10 MG TABLET. PO SCH (21:00)
[2017-07-14 23:47] VITALS: BP 124/63
[2017-07-15 03:00] VITALS: BP 121/74
[2017-07-15 07:15] VITALS: BP 123/61
[2017-07-15 08:11] LABS: BASO % 1 % (0-3); EOS % 2 % (0-3); HEMATOCRIT 47.1 % (39.0-53.0); HEMOGLOBIN 16.1 g/dL (13.0-17.5); LYMPH # 1.5 x10^3/uL (1.0-4.8); LYMPH % 21 % (24-48); MEAN CORPUSCULAR HEMOGLOBIN 34 pg (25-35); MEAN CORPUSCULAR HGB CONC 34 g/dL (31-37); MEAN CORPUSCULAR VOLUME 100 fL (79-100); MONO % 11 % (0-9); NEUT % 65 % (31-73); PLATELET COUNT 163 x10^3/uL (140-400); RED BLOOD COUNT 4.72 x10^6/uL (4.30-5.70); RED CELL DISTRIBUTION WIDTH 13.4 % (11.5-14.5); WHITE BLOOD COUNT 7.1 x10^3/uL (4.0-11.0)
--- NOTE | 2017-07-15 08:25 | PDOC ---
PROGRESS NOTES Assessment Problems Medical Problems: (1) Elevated brain natriuretic peptide (BNP) level Status: Acute (2) Left arm weakness Status: Acute Essential tremor, no evidence of parkinsonism. Already better with Mysoline I suspect some multifactorial gait disorder of the elderly. Hard of hearing, may also have some mild age-appropriate dementia. No evidence of acute stroke or myelopathy. Note that physical therapy deems patient safe to go home Plan Increase Mysoline to 25 mg bid. Okay for discharge Follow up with me 2 months Subjective Feels better Objective Vital Signs Date Time Temp Pulse Resp B/P (MAP) Pulse Ox O2 Delivery O2 Flow Rate FiO2 07/15/17 07:15 98.1 68 20 123/61 (81) 93 Room Air 98.1 PHYSICAL EXAM Alert. Oriented to time, place and person. PERRL. EOMI. CN: Hard of hearing, otherwise no focal findings. Muscle tone: normal. Muscle strength: 4/5 DTR: 1+ Plantar reflex: flexor Gait: not examined in bed. Sensory exam: no abnormal findings. No cerebellar signs elicited. Minimal postural tremor, no head tremor Review of Relevant I have reviewed the following items kathrin (where applicable) has been applied. Labs Laboratory Tests Test 07/13/17 09:20 07/14/17 03:05 Troponin I Quantitative 0.069 ng/mL (0.000-0.055) White Blood Count 9.4 x10^3/uL (4.0-11.0) Red Blood Count 4.46 x10^6/uL (4.30-5.70) Hemoglobin 15.4 g/dL (13.0-17.5) Hematocrit 44.8 % (39.0-53.0) Mean Corpuscular Volume 100 fL (79-100) Mean Corpuscular Hemoglobin 35 pg (25-35) Mean Corpuscular Hemoglobin Concent 34 g/dL (31-37) Red Cell Distribution Width 13.2 % (11.5-14.5) Platelet Count 156 x10^3/uL (140-400) Neutrophils (%) (Auto) 74 % (31-73) Lymphocytes (%) (Auto) 15 % (24-48) Monocytes (%) (Auto) 9 % (0-9) Eosinophils (%) (Auto) 1 % (0-3) Basophils (%) (Auto) 1 % (0-3) Neutrophils # (Auto) 6.9 x10^3uL (1.8-7.7) Lymphocytes # (Auto) 1.4 x10^3/uL (1.0-4.8) Monocytes # (Auto) 0.8 x10^3/uL (0.0-1.1) Eosinophils # (Auto) 0.1 x10^3/uL (0.0-0.7) Basophils # (Auto) 0.1 x10^3/uL (0.0-0.2) Sodium Level 138 mmol/L (136-145) Potassium Level 3.4 mmol/L (3.5-5.1) Chloride Level 102 mmol/L (98-107) Carbon Dioxide Level 30 mmol/L (21-32) Anion Gap 6 (6-14) Blood Urea Nitrogen 15 mg/dL (8-26) Creatinine 0.9 mg/dL (0.7-1.3) Estimated GFR (Cockcroft-Gault) 79.5 Glucose Level 112 mg/dL (70-99) Calcium Level 8.7 mg/dL (8.5-10.1) Magnesium Level 2.2 mg/dL (1.8-2.4) SB-Bdw-E-Type Natriuretic Peptide 2811 pg/mL (0-449) Medications Current Medications Ondansetron HCl (Zofran) 4 mg PRN Q8HRS PRN IV NAUSEA/VOMITING; Start 07/12/17 at 21:45; Stop 07/13/17 at 21:44; Status DC Fentanyl Citrate (Fentanyl 2ml Vial) 50 mcg PRN Q2HR PRN IV PAIN; Start at 21:45; Stop 07/13/17 at 21:44; Status DC Furosemide (Lasix) 40 mg DAILY IVP Last administered on 07/13/17 11:12; Start 07/13/17 at 11:00; Stop 07/13/17 at 12:55; Status DC Aspirin (Ecotrin) 81 mg DAILYWBKFT PO Last administered on 07/14/17 08:18; Start 07/13/17 at 14:00 Potassium Chloride (Klor-Con) 20 meq DAILYWBKFT PO Last administered on 16:09; Start 07/14/17 at 14:00 Furosemide (Lasix) 40 mg DAILY PO Last administered on 07/14/17 08:18; Start 07/14/17 at 09:00 Potassium Chloride (Klor-Con) 20 meq 1X ONCE PO Last administered on 15:57; Start 07/14/17 at 09:30; Stop 07/14/17 at 16:00; Status DC Regadenoson (Lexiscan) 0.4 mg 1X ONCE IV Last administered on 07/14/17 11:19 ; Start 07/14/17 at 10:15; Stop 07/14/17 at 10:16; Status DC Primidone (Mysoline) 25 mg DAILY PO Last administered on 07/14/17 15:56; Start 07/14/17 at 14:30 Atorvastatin Calcium (Lipitor) 10 mg QHS PO Last administered on 07/14/17 21: 31; Start 07/14/17 at 21:00 Potassium Chloride (Klor-Con) 20 meq 1X ONCE PO Last administered on 16:15; Start 07/14/17 at 16:15; Stop 07/14/17 at 16:16; Status DC Active Scripts Active Reported Multivitamins (Multivitamin) 1 Each Tablet 1 Each PO DAILY Aspir 81 (Aspirin) 81 Mg Tablet. 1 Tab PO DAILY Vitals/I & O Vital Sign - Last 24 Hours 07/14/17 07/14/17 07/14/17 07/14/17 10:56 15:41 19:50 20:00 Temp 98.1 97.9 99.2 98.1 97.9 99.2 Pulse 73 57 72 Resp 16 16 18 B/P (MAP) 129/65 (86) 123/79 (94) 121/68 (85) Pulse Ox 93 94 95 O2 Delivery Room Air Room Air Room Air Room Air 07/14/17 07/15/17 07/15/17 23:47 03:00 07:15 Temp 98.7 98.1 98.1 98.7 98.1 98.1 Pulse 69 75 68 Resp 20 20 20 B/P (MAP) 124/63 (83) 121/74 (90) 123/61 (81) Pulse Ox 97 95 93 O2 Delivery Room Air Room Air NALLELY FARLEY MD Jul 15, 2017 08:25
[2017-07-15 08:29] LABS: CALCIUM 8.7 mg/dL (8.5-10.1); GFR 70.4; POTASSIUM 4.2 mmol/L (3.5-5.1)
[2017-07-15] MEDS ORDERED: PRIMIDONE 50 MG TABLET PO SCH (09:00)
[2017-07-15] MEDS: POTASSIUM CHLORIDE 20 MEQ TABLET.ER. PO SCH (09:18)
[2017-07-15] MEDS: ASPIRIN ENTERIC COATED 81 MG TABLET.DR. PO SCH (09:18)
[2017-07-15] MEDS: FUROSEMIDE 40 MG TABLET. PO SCH (09:18)
[2017-07-15 11:28] VITALS: BP 121/65
--- NOTE | 2017-07-15 14:12 | PDOC ---
CARDIO Progress Notes Date and Time Date of Service 07/15/17 Time of Evaluation 1120 Subjective Subjective: No Chest Pain, No shortness of breath, Other (wanting to go home) Vitals Vitals Vital Signs Date Time Temp Pulse Resp B/P (MAP) Pulse Ox O2 Delivery O2 Flow Rate FiO2 07/15/17 11:28 98.1 84 18 121/65 (83) 93 Room Air 98.1 Weight Weight [ ] Laboratory Labs Laboratory Tests Test 07/15/17 07:40 White Blood Count 7.1 x10^3/uL (4.0-11.0) Red Blood Count 4.72 x10^6/uL (4.30-5.70) Hemoglobin 16.1 g/dL (13.0-17.5) Hematocrit 47.1 % (39.0-53.0) Mean Corpuscular Volume 100 fL (79-100) Mean Corpuscular Hemoglobin 34 pg (25-35) Mean Corpuscular Hemoglobin Concent 34 g/dL (31-37) Red Cell Distribution Width 13.4 % (11.5-14.5) Platelet Count 163 x10^3/uL (140-400) Neutrophils (%) (Auto) 65 % (31-73) Lymphocytes (%) (Auto) 21 % (24-48) Monocytes (%) (Auto) 11 % (0-9) Eosinophils (%) (Auto) 2 % (0-3) Basophils (%) (Auto) 1 % (0-3) Neutrophils # (Auto) 4.6 x10^3uL (1.8-7.7) Lymphocytes # (Auto) 1.5 x10^3/uL (1.0-4.8) Monocytes # (Auto) 0.8 x10^3/uL (0.0-1.1) Eosinophils # (Auto) 0.1 x10^3/uL (0.0-0.7) Basophils # (Auto) 0.0 x10^3/uL (0.0-0.2) Sodium Level 138 mmol/L (136-145) Potassium Level 4.2 mmol/L (3.5-5.1) Chloride Level 101 mmol/L (98-107) Carbon Dioxide Level 32 mmol/L (21-32) Anion Gap 5 (6-14) Blood Urea Nitrogen 18 mg/dL (8-26) Creatinine 1.0 mg/dL (0.7-1.3) Estimated GFR (Cockcroft-Gault) 70.4 Glucose Level 120 mg/dL (70-99) Calcium Level 8.7 mg/dL (8.5-10.1) Physical Exam HEENT: Neck Supple W Full Motion Chest: Symmetric LUNGS: Other (diminished bases ) Heart: S1S2, RRR, no murmurs Abdomen: Soft N/T Extremities: Other (2+ RLE and 1+ LLE edema) Neurology: alert, oriented, follow commands Assessment Assessment 1. Mild acute diastolic heart failure; LVEF 50%. Now compensated. 2. Mild troponin elevation; peak 0.071. EKG with LBBB; no previous for comparison. stable. CP free. MPI without evidence of ischemia or infarct 3. Hyperlipidemia; LDL 144 4. Weakness/debility/tremors 5. Hyperglycemia; as per PCP Recommendations Continue medical management/supportive care Decrease Lasix 20mg daily. May discharge from a CV standpoint and f/u in our office in 4 weeks. ISAIAH CH APRN Jul 15, 2017 14:12
[2017-07-15] MEDS ORDERED: ATOR10TA60 PO (14:25)
[2017-07-15] MEDS ORDERED: ASPI-612 PO (14:25)
[2017-07-15] MEDS ORDERED: FURO20TA3 PO (14:25)
[2017-07-15] MEDS ORDERED: POTA10TA17 PO (14:25)
[2017-07-15] MEDS ORDERED: PRIM50TA24 PO (14:25)
[2017-07-15 15:12] VITALS: BP 112/52
[2017-07-16] MEDS ORDERED: POTASSIUM CITRATE 10 MEQ TABLET.ER PO SCH (08:00)
[2017-07-16] MEDS ORDERED: FUROSEMIDE 20 MG TABLET PO SCH (09:00)
--- NOTE | 2017-07-18 17:35 | DS ---
DATE OF DISCHARGE: 07/15/2017 CHIEF COMPLAINT: Shortness of breath. HOSPITAL COURSE: The patient is an 89-year-old gentleman who presented to the Emergency Room with left arm weakness and pain. He called ambulance as he was having trouble getting around for a few days. He was found with EKG changes and x-ray showed vascular congestion. He was therefore admitted for CHF and started on IV Lasix. Cardiac consult was obtained. He improved clinically with ongoing Lasix therapy. EKG changes were attributed to left bundle branch block, which given his age and comorbidities was medically managed. He was discharged to home on the . DISCHARGE EXAMINATION: VITAL SIGNS: Blood pressure 112/52, heart rate of 76 and respiratory rate at 18. He is afebrile. GENERAL: This is a well-nourished 89-year-old gentleman, alert and oriented, in no acute distress. LUNGS: Clear. HEART: Has regular rate and rhythm. ABDOMEN: Has positive bowel sounds. Soft and nontender. EXTREMITIES: Showed 1-2+ edema in the lower extremities, right greater than left. DISCHARGE DIAGNOSIS: Congestive heart failure. DISCHARGE DISPOSITION: Home. DISCHARGE CONDITION: Improved. DISCHARGE MEDICATIONS: Please refer to MAR. DISCHARGE INSTRUCTIONS: The patient will follow up with Cardiology as well as PCP in the next 2 weeks. FADI RODRIGUEZ MD DR: UR/nts JOB#: [id number] / [id number] VALERIE De Leon MD MTDD
== END 2017-07-15 15:45 | disposition home or self-care (01) | DRG 291 ==
LOC: ER 20:15 → 6 SOUTH 22:11
PROVIDERS: ADMIT Internal Medicine; ATTEND Internal Medicine
DX: I11.0 Hypertensive heart disease with heart failure (principal); G93.41 Metabolic encephalopathy; N39.0 Urinary tract infection, site not specified; E11.65 Type 2 diabetes mellitus with hyperglycemia; I50.43 Acute on chronic combined systolic (congestive) and diastolic (congestive) heart failure; G25.0 Essential tremor; R53.1 Weakness; E78.5 Hyperlipidemia, unspecified; E87.6 Hypokalemia; I44.7 Left bundle-branch block, unspecified; H91.90 Unspecified hearing loss, unspecified ear; Z82.49 Family history of ischemic heart disease and other diseases of the circulatory system; Z79.899 Other long term (current) drug therapy
CPT/HCPCS: 36415; 70450; 71010; 72125; 78452; 80047; 80048; 80053; 80061; 81001; 83690; 83735; 83880; 84443; 84484; 85025; 85610; 85730; 93005; 93017; 93306; 96374; 96375; 96376; A9500; J1940; J2785; 99285-25